=== PATIENT | female | born 1965 | race Caucasian/White ===

== ENCOUNTER 2021-06-16 15:54 | Outpatient (REF) | payer BC, SELFPAY ==
--- NOTE | ~2021-06-16 | XR_ITS ---
EXAMINATION: XR KNEE, LEFT CLINICAL INFORMATION: M25.562 - Pain in left knee COMPARISON: Pain TECHNIQUE: Four views of the left knee. FINDINGS: There is no fracture or dislocation. There is mild narrowing medial knee joint compartment with marginal osteophytes from medial femoral condyle. There is no erosive change or chondrocalcinosis. Spurring at the quadriceps insertion patella is present. There is likely small suprapatellar effusion. Hoffa's fat pad appears normal. XR/XR knee LT 4V IMPRESSION: 1. Mild degenerative changes medial knee joint compartment. Probable small effusion. 2. Spurring at quadriceps insertion patella.
== END 2021-06-16 15:55 | disposition home or self-care (01) ==
LOC: HO.HMGCX 15:54
PROVIDERS: PCP Internal Medicine; Visit Provider Physician Assistant Medical
DX: M25.562 Pain in left knee (principal)
CPT/HCPCS: 73564

== ENCOUNTER 2021-12-05 07:32 | Outpatient (REF) | payer BC, SELFPAY ==
--- NOTE | ~2021-12-05 | XR_ITS ---
EXAMINATION: XR KNEE, LEFT XR KNEE AP STANDING CLINICAL INFORMATION: Pain. COMPARISON: None TECHNIQUE: Lateral and axial views of the left knee were obtained. AP bilateral standing view of the knees was obtained. FINDINGS: Bony mineralization is normal. The right lateral and medial joint space compartments are well-maintained. There is slight peripheral osteophyte formation of the right medial joint space compartment. There is mild asymmetric narrowing of the left medial joint space compartment, with peripheral osteophyte formation. The lateral and patellofemoral joint space compartments are well-maintained. There is a large left knee joint effusion. No fracture or dislocation is seen. There is no significant varus or valgus configuration noted bilaterally. XR/XR knee LT 2V IMPRESSION: 1. There is minimal osteoarthritic change of the medial joint space compartment of the right knee. 2. There is mild osteoarthritic change of the medial joint space compartment of the left knee. 3. There is a large left knee joint effusion.
--- NOTE | ~2021-12-05 | XR_ITS ---
EXAMINATION: XR KNEE, LEFT XR KNEE AP STANDING CLINICAL INFORMATION: Pain. COMPARISON: None TECHNIQUE: Lateral and axial views of the left knee were obtained. AP bilateral standing view of the knees was obtained. FINDINGS: Bony mineralization is normal. The right lateral and medial joint space compartments are well-maintained. There is slight peripheral osteophyte formation of the right medial joint space compartment. There is mild asymmetric narrowing of the left medial joint space compartment, with peripheral osteophyte formation. The lateral and patellofemoral joint space compartments are well-maintained. There is a large left knee joint effusion. No fracture or dislocation is seen. There is no significant varus or valgus configuration noted bilaterally. XR/XR knee standing BI IMPRESSION: 1. There is minimal osteoarthritic change of the medial joint space compartment of the right knee. 2. There is mild osteoarthritic change of the medial joint space compartment of the left knee. 3. There is a large left knee joint effusion.
== END 2021-12-05 07:33 | disposition home or self-care (01) ==
LOC: HO.HOSX 07:32
PROVIDERS: Visit Provider Physician Assistant
DX: M25.562 Pain in left knee (principal)
CPT/HCPCS: 73560; 73565

== ENCOUNTER → 2022-05-30 08:06 | Outpatient (BNVA) | payer BC, SELFPAY | PROVIDERS: PCP Internal Medicine; Visit Provider Physician Assistant | DX: M22.2X2 Patellofemoral disorders, left knee (principal); E11.9 Type 2 diabetes mellitus without complications | CPT/HCPCS: 20610; J1020 ==

== ENCOUNTER 2022-11-01 10:42 | Outpatient (REF) | payer BC, SELFPAY ==
[2022-11-01 14:15] LABS: Basophils Percent Auto 0.4 % (0-2); Eosinophils Absolute Auto 0.1 X10*3/uL (0.0-0.4); Eosinophils Percent Auto 1.4 % (0-4); Hematocrit 42.6 % (37.0-47.0); Hemoglobin 14.6 g/dl (12.0-16.0); Imm Gran Abs Auto 0.03 X10*3/uL (0.00-0.03); Imm Gran Pct Auto 0.5 % (0.0-0.4); Lymphocytes Absolute Auto 3.6 X10*3/uL (1.2-4.9); Lymphocytes Percent Auto 64.5 % (20-40); MANUAL DIFF FLAG SCAN; Mean Corpuscular HGB Conc 34.3 g/dl (31.0-35.0); Mean Corpuscular Hemoglobin 30.4 pg (27.0-33.0); Mean Corpuscular Volume 88.8 fL (80.0-98.0); Mean Platelet Volume 9.9 fL (9.4-12.3); Monocytes Absolute Auto 0.5 X10*3/uL (0.1-1.2); Monocytes Percent Auto 9.6 % (2-11); Neutrophils Absolute Auto 1.3 x10*3/uL (2.0-8.3); Neutrophils Percent Auto 23.6 % (45-73); Platelet Count 283 X10*3/uL (160-400); Red Cell Distribution Width 12.2 % (11.0-16.0); SCAN SMEAR FLAG 1; White Blood Count 5.6 X10*3/uL (4.8-10.8)
[2022-11-01 14:28] LABS: Estimated Average Glucose 203 mg/dL; Hemoglobin A1c % 8.7 %
[2022-11-01 14:31] LABS: C Reactive Protein 0.31 mg/dL (< or = 0.50); Uric Acid 9.8 mg/dL (2.4-5.7)
[2022-11-01 14:35] LABS: Alanine Aminotransferase 35 U/L (0-31); Albumin Level 4.2 g/dL (3.5-5.0); Alkaline Phosphatase 78 U/L (39-117); Anion Gap 12 (12-20); Aspartate Amino Transferase 22 U/L (5-31); Bilirubin Total 0.7 mg/dL (0.0-1.0); Blood Urea Nitrogen 21 mg/dL (9-16); Calcium 9.4 mg/dL (8.4-10.2); Carbon Dioxide 28 mmol/L (22-29); Chloride 103 mmol/L (96-108); Cholesterol 238 mg/dL; Estimated Glomerular Filt Rate > 60; Glucose Fasting 189 mg/dL (60-99); HDL Cholesterol 36 mg/dL; LDL Cholesterol Calculated 174 mg/dl; Potassium 4.2 mmol/L (3.3-5.1); Sodium 139 mmol/L (135-145); Total Protein 6.8 g/dL (6.5-8.0); Triglycerides 144 mg/dL
[2022-11-01 14:43] LABS: SLIDE REVIEW VERIFIED
[2022-11-01 14:55] LABS: Erythrocyte Sedimentation Rate 6 MM/HR (0-20)
[2022-11-01 15:18] LABS: Creatinine Urine 108.31 mg/dL; Microalbum/Creatinine Ratio Ur 6.4 ug/mg cr
== END 2022-11-01 10:43 | disposition home or self-care (01) ==
LOC: HO.HMGCLDS 10:42
PROVIDERS: Absent Provider Physician Assistant; PCP Internal Medicine; Visit Provider Internal Medicine
DX: Z00.00 Encounter for general adult medical examination without abnormal findings (principal); E11.9 Type 2 diabetes mellitus without complications; M79.672 Pain in left foot
CPT/HCPCS: 36415; 80053; 80061; 82043; 83036; 84550; 85025; 85652; 86140

== ENCOUNTER 2023-01-25 11:17 | Outpatient (REF) | payer BC, SELFPAY ==
[2023-01-25 16:08] LABS: MANUAL DIFF FLAG NO
[2023-01-25 16:27] LABS: Basophils Percent Auto 0.4 % (0-2); Eosinophils Absolute Auto 0.1 X10*3/uL (0.0-0.4); Eosinophils Percent Auto 1.5 % (0-4); Hematocrit 43.3 % (37.0-47.0); Hemoglobin 14.4 g/dl (12.0-16.0); Imm Gran Abs Auto 0.05 X10*3/uL (0.00-0.03); Imm Gran Pct Auto 0.6 % (0.0-0.4); Lymphocytes Absolute Auto 4.4 X10*3/uL (1.2-4.9); Lymphocytes Percent Auto 53.4 % (20-40); Mean Corpuscular HGB Conc 33.3 g/dl (31.0-35.0); Mean Corpuscular Hemoglobin 29.8 pg (27.0-33.0); Mean Corpuscular Volume 89.6 fL (80.0-98.0); Mean Platelet Volume 9.7 fL (9.4-12.3); Monocytes Absolute Auto 0.9 X10*3/uL (0.1-1.2); Monocytes Percent Auto 10.9 % (2-11); Neutrophils Absolute Auto 2.8 x10*3/uL (2.0-8.3); Neutrophils Percent Auto 33.2 % (45-73); Platelet Count 325 X10*3/uL (160-400); Red Blood Count 4.83 X10*6/uL (4.20-5.50); Red Cell Distribution Width 12.4 % (11.0-16.0); White Blood Count 8.3 X10*3/uL (4.8-10.8)
[2023-01-25 16:33] LABS: Estimated Average Glucose 163 mg/dL; Hemoglobin A1c % 7.3 %
[2023-01-25 17:21] LABS: Alanine Aminotransferase 37 U/L (0-31); Albumin Level 4.4 g/dL (3.5-5.0); Alkaline Phosphatase 106 U/L (39-117); Anion Gap 13 (12-20); Aspartate Amino Transferase 26 U/L (5-31); Bilirubin Total 0.3 mg/dL (0.0-1.0); Blood Urea Nitrogen 25 mg/dL (9-16); Calcium 9.8 mg/dL (8.4-10.2); Carbon Dioxide 26 mmol/L (22-29); Chloride 105 mmol/L (96-108); Estimated Glomerular Filt Rate > 60; Glucose Random 145 mg/dL (60-115); Potassium 4.1 mmol/L (3.3-5.1); Sodium 140 mmol/L (135-145); Total Protein 7.5 g/dL (6.5-8.0); Uric Acid 8.8 mg/dL (2.4-5.7)
== END 2023-01-25 11:18 | disposition home or self-care (01) ==
LOC: HO.HMGCLDS 11:17
PROVIDERS: PCP Internal Medicine; Visit Provider Internal Medicine
DX: E11.9 Type 2 diabetes mellitus without complications (principal); E66.09 Other obesity due to excess calories; E79.0 Hyperuricemia without signs of inflammatory arthritis and tophaceous disease; E78.9 Disorder of lipoprotein metabolism, unspecified
CPT/HCPCS: 36415; 80053; 83036; 84550; 85025

== ENCOUNTER 2023-04-18 09:25 | Outpatient (AMB) | payer BC, SELFPAY ==
--- NOTE | 2023-04-18 09:26 | MHC.PC.OV ---
Vital Signs 04/18/23 09:27 Height 5 ft 3 in Weight 204 lb BMI 36.1 BP 138/80 Blood Pressure Location Rt brachial Position Sitting Pulse 91 Pulse Source Pulse Oximeter Pulse Oximetry (%) 97 Oxygen Delivery Method Room Air Intake Visit Reasons: 3m follow up Allergies penicillin V Allergy (Unknown, Verified 04/18/23 09:27) unknown Tobacco use date assessed: 04/18/23 Dental Screening Dental Screen Date: 04/18/23 Did you have a dental visit in the last 12 months?: Yes Did you have a dental problem in the last 6 months where you did not have access to dental care?: No Was dental information given to patient?: Patient has dentist HPI 3m follow up HPI Details Patient is a 57-year-old female who came back from [place] after visiting her mother who is demented Her mother did not recognize her, patient is going through emotional crisis, tells me that it is difficult for her to process all these changes. She is continuously weeping. She does agree to start therapy I have our behavior health coordinator meet with the patient She had labs done in January her hemoglobin A1c has gone up to 7.3, currently patient is on glipizide 5 mg She says that she is going to try to control her diet better. BMI is elevated 36.1 patient also need to lose weight. She will repeat labs again in June when she will return for physical exam [facility] Medical History Dog bite of left lower leg Nasal congestion with rhinorrhea Annual physical exam Depression Anxiety Type 2 diabetes mellitus Breast calcification, left Surgical History S/P KHANH-BSO H/O colonoscopy Family History Father Hypertension Diabetes Mother Diabetes Hypertension COPD (chronic obstructive pulmonary disease) Social History Housing: House Patient Tobacco Use Status: Never used Tobacco e-Cigarette/Vaping Use: Never Used Second Hand Smoke Exposure: Yes Current occupational status: employed Cognitive needs: No Hearing needs: No Vision needs: Yes Questionnaire PHQ-9 Over the last 2 weeks, how often have you been bothered by any of the following problems? 1. Little interest or pleasure in doing things: more than half the days 2. Feeling down, depressed, or hopeless: more than half the days 3. Trouble falling or staying asleep, or sleeping too much: more than half the days 4. Feeling tired or having little energy: several days 5. Poor appetite or overeating: several days 6. Feeling bad about yourself - or that you are a failure or have let yourself or your family down: not at all 7. Trouble concentrating on things, such as reading the newspaper or watching television: not at all 8. Moving or speaking so slowly that other people could have noticed. Or the opposite - being so fidgety or restless that you have been moving around a lot more than usual: not at all 9. Thoughts that you would be better off or of hurting yourself in some way: not at all Total score: 8 Depression Screening Interpretation: Negative Depression Screening Done: Yes 23827 - PHQ-9 Billing: Yes Source: Developed by Drs. aDniel Mata, Sam Feliciano and colleagues, with an educational hyun from [employer]. Thrive Questionnaire Date Thrive assessed: 09/19/22 AUDIT C Alcohol Use Questionnaire (AUDIT-C) 1. How often do you have a drink containing alcohol?: Never 3. How often do you have six or more drinks on one occasion?: Never Total Score: 0 Score Reviewed/Action Taken: Yes ROMMEL-7 AMB Questionnaire ROMMEL-7 Date ROMMEL - 7 assessed: 09/19/22 Source: Developed by Drs. Daniel Mata, Sam Feliciano and colleagues, with an educational hyun from [employer]. Review of Systems Const Denies chills and Denies fever(s) ENT Denies epistaxis and Denies nasal discharge Card Denies chest pain Resp Denies chest congestion, Denies cough and Denies hemoptysis GI Denies diarrhea and Denies nausea Skin/Breast Denies rash Neuro Reports no additional complaints Psych Reports no additional complaints Endo Reports no additional complaints Physical exam (Primary Care) Vital Signs: Last Vital Signs Pulse 91 04/18/23 09:27 BP 138/80 04/18/23 09:27 Pulse Ox 97 04/18/23 09:27 Oxygen Delivery Method Room Air 04/18/23 09:27 BMI result Body Mass Index 36.1 Tobacco/Smoking Status: Tobacco use Status Tobacco use date assessed 04/18/23 04/18/23 09:29 Patient Tobacco Use Status Never used Tobacco 04/18/23 09:29 e-Cigarette/Vaping Use Never Used 04/18/23 09:29 PHQ-9: PHQ-9 Score PHQ-9: Total score 8 04/18/23 10:13 Depression Screening Interpretation: Negative Thrive Assessment: Date of Thrive Assessment Date Thrive assessed 09/19/22 04/18/23 09:29 Const General: cooperative, comfortable and no acute distress Orientation/consciousness: patient oriented x3 HENMT Head: Yes normocephalic Eyes General: appearance normal, both eyes and all related structures Neck Neck: Yes supple Resp Effort & Inspection: normal respiratory effort, no cough and no stridor Cardio Rhythm: regular rhythm Heart sounds: S1 normal heart sound present and S2 normal heart sound present Skin General skin exam: turgor normal Neuro General: patient oriented x3, tone normal and moves all extremities Extrem Right lower extremity: no edema Left lower extremity: no edema Assessment and Plan Assessment & Plan (1) DM type 2 (diabetes mellitus, type 2): Code(s): E11.9 - Type 2 diabetes mellitus without complications Qualifiers: Diabetes mellitus complication status: without complication 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 Qualified Code(s): E11.9 - Type 2 diabetes mellitus without complications (2) Lipid disorder: Code(s): E78.9 - Disorder of lipoprotein metabolism, unspecified (3) Obesity due to excess calories: Code(s): E66.09 - Other obesity due to excess calories (4) Elevated uric acid in blood: Code(s): E79.0 - Hyperuricemia without signs of inflammatory arthritis and tophaceous disease (5) Emotional crisis: Code(s): F43.20 - Adjustment disorder, unspecified Plan Patient is a 57-year-old female who came back from [place] after visiting her mother who is demented Her mother did not recognize her, patient is going through emotional crisis, tells me that it is difficult for her to process all these changes. She is continuously weeping. She does agree to start therapy I have our behavior health coordinator meet with the patient She had labs done in January her hemoglobin A1c has gone up to 7.3, currently patient is on glipizide 5 mg She says that she is going to try to control her diet better. BMI is elevated 36.1 patient also need to lose weight. She also have elevated lipids but does not for headache medication Uric acid is also elevated. 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
[2023-04-18 09:27] VITALS: BP 138/80; PULSE 91; O2SAT 97; BMI 36.1
== END 2023-04-18 10:02 | disposition home or self-care (01) ==
PROVIDERS: PCP Internal Medicine; Visit Provider Internal Medicine
DX: E11.9 Type 2 diabetes mellitus without complications (principal); E78.9 Disorder of lipoprotein metabolism, unspecified; Z68.36 Body mass index [BMI] 36.0-36.9, adult; E66.09 Other obesity due to excess calories; E79.0 Hyperuricemia without signs of inflammatory arthritis and tophaceous disease; F43.20 Adjustment disorder, unspecified
CPT/HCPCS: 99214

== ENCOUNTER 2023-06-27 11:04 | Outpatient (AMB) | payer BC, SELFPAY ==
[2023-06-27 11:06] VITALS: BP 158/88; PULSE 69; O2SAT 98; BMI 36.4
--- NOTE | 2023-06-27 11:06 | MHC.PC.OV ---
Vital Signs 06/27/23 11:06 Height 5 ft 3 in Weight 205 lb 5 oz BMI 36.4 BP 158/88 H Blood Pressure Location Rt brachial Position Sitting Pulse 69 Pulse Source Pulse Oximeter Pulse Oximetry (%) 98 Oxygen Delivery Method Room Air Intake Visit Reasons: PE Allergies penicillin V Allergy (Unknown, Verified 06/27/23 11:06) unknown Medication List - Last Reconciled 06/27/23 by Tim Nieves MD blood sugar diagnostic (OneTouch Ultra Test strips) As directed blood-glucose meter (IBTgamesTouch Ultra2 Meter) Use to check fasting blood sugar daily glipizide 5 mg PO DAILY 90 days lancets (IBTgamesTouch Delica Lancets) Use to check fasting blood sugar daily Tobacco use date assessed: 06/27/23 Dental Screening Dental Screen Date: 06/27/23 Did you have a dental visit in the last 12 months?: Yes Did you have a dental problem in the last 6 months where you did not have access to dental care?: No Was dental information given to patient?: Patient has dentist HPI PE HPI Details Patient is a 57-year-old female for physical exam Patient had COVID 3 weeks still have lingering cough but she is recovering 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 I have sent Lexapro 5 mg tablet with the patient I have encouraged her to take 1 at least 4 a month or so. She starting therapy tomorrow. Patient have a history of uterine cancer she goes to a gyne Oncology once a year and just had a checkup done Colonoscopy was 5 years ago [facility], next 1 will be when she will turn 62 Mammogram was August of this year Patient have diabetes and is on glipizide 5 mg daily. Follow-up 3 months [facility] Medical History Dog bite of left lower leg Nasal congestion with rhinorrhea Annual physical exam Depression Anxiety Type 2 diabetes mellitus Breast calcification, left Surgical History S/P KHANH-BSO H/O colonoscopy Family History Father Hypertension Diabetes Mother Diabetes Hypertension COPD (chronic obstructive pulmonary disease) Social History Housing: House Patient Tobacco Use Status: Never used Tobacco e-Cigarette/Vaping Use: Never Used Second Hand Smoke Exposure: Yes Current occupational status: employed Cognitive needs: No Hearing needs: No Vision needs: Yes Questionnaire Thrive Questionnaire Date Thrive assessed: 09/19/22 ROMMEL-7 AMB Questionnaire ROMMEL-7 Date ROMMEL - 7 assessed: 09/19/22 Source: Developed by Drs. Daniel Mata, Namrata Mcguire, Sam Andres and colleagues, with an educational hyun from [employer]. Review of Systems Const Denies chills, Denies fever(s) and Denies headache(s) Eyes Denies blurry vision ENT Denies headache(s), Denies nasal discharge, Denies nasal obstruction, Denies odynophagia and Denies sinus pain Card Denies chest pain at rest and Denies chest pain with activity Resp Denies cough and Denies hemoptysis GI Denies odynophagia, Denies vomiting and Denies hematemesis Reports as per HPI Musc Denies abnormal gait Skin/Breast Reports as per HPI Neuro Denies Neuro-related abnormal movements, Denies Abnormal speech present, Denies abnormal gait, Denies headache(s) and Denies Sensory deficit (Neuro) Psych Denies mood swings and Denies paranoia Endo Reports as per HPI Javier/Lymph Reports as per HPI Aller/Immun Reports as per HPI Physical exam (Primary Care) Vital Signs: Last Vital Signs Pulse 69 06/27/23 11:06 BP 158/88 H 06/27/23 11:06 Pulse Ox 98 06/27/23 11:06 Oxygen Delivery Method Room Air 06/27/23 11:06 BMI result Body Mass Index 36.4 Tobacco/Smoking Status: Tobacco use Status Tobacco use date assessed 06/27/23 06/27/23 11:08 Patient Tobacco Use Status Never used Tobacco 06/27/23 11:08 e-Cigarette/Vaping Use Never Used 06/27/23 11:08 Thrive Assessment: Date of Thrive Assessment Date Thrive assessed 09/19/22 06/27/23 11:08 Const General: cooperative, comfortable and no acute distress Orientation/consciousness: patient oriented x3 HENMT Head: Yes normocephalic and Yes atraumatic Eyes General: appearance normal, both eyes and all related structures Pupils: Equal, round and reactive pupils present EOM: EOMs intact bilaterally Neck Neck: Yes supple and No lymphadenopathy Thyroid: Thyroid normal Lymphatic: no lymphadenopathy noted Chest Breast/axilla palpation: normal palpation of the breasts Resp Effort & Inspection: normal respiratory effort and able to speak in complete sentences Auscultation: clear to auscultation bilaterally Cardio Heart sounds: S1 normal heart sound present and S2 normal heart sound present GI Palpation (GI): Soft to palpation and nontender Auscultation: normal bowel sounds General: Yes no CVA tenderness Back/Spine/Pelvis Back: no CVA tenderness Skin General skin exam: elasticity normal and turgor normal Neuro General: patient oriented x3 and gait normal Cranial nerves: Yes Equal, round and reactive pupils present Speech: No Abnormal speech present Sensory Exam: No Sensory deficit (Neuro) Coordination: tandem gait normal and Romberg test negative Extrem General: Yes normal exam except as noted and No edema Assessment and Plan Assessment & Plan (1) Encounter for general adult medical examination with abnormal findings: Code(s): Z00.01 - Encounter for general adult medical examination with abnormal findings (2) Emotional crisis: Code(s): F43.20 - Adjustment disorder, unspecified (3) Anxiety, generalized: Code(s): F41.1 - Generalized anxiety disorder (4) Lipid disorder: Code(s): E78.9 - Disorder of lipoprotein metabolism, unspecified (5) Irritable bowel syndrome with diarrhea: Code(s): K58.0 - Irritable bowel syndrome with diarrhea (6) Obesity due to excess calories: Code(s): E66.09 - Other obesity due to excess calories (7) DM type 2 (diabetes mellitus, type 2): Code(s): E11.9 - Type 2 diabetes mellitus without complications Qualifiers: Diabetes mellitus complication status: without complication 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 I have sent Lexapro 5 mg tablet with the patient I have encouraged her to take 1 at least 4 a month or so. She starting therapy tomorrow. Patient have a history of uterine cancer she goes to a gyne Oncology once a year and just had a checkup done Colonoscopy was 5 years ago [facility], next 1 will be when she will turn 62 Mammogram was August of this year Patient have diabetes and is on glipizide 5 mg daily. Follow-up 3 months Orders: Orders Comprehensive Met. Panel Today E11.9 - Type 2 diabetes mellitus without complications, E66.09 - Other obesity due to excess calories, E78.9 - Disorder of lipoprotein metabolism, unspecified, F41.1 - Generalized anxiety disorder, F43.20 - Adjustment disorder, unspecified, K58.0 - Irritable bowel syndrome with diarrhea, Z00.01 - Encounter for general adult medical examination with abnormal findings Hemoglobin A1c Today E11.9 - Type 2 diabetes mellitus without complications, E66.09 - Other obesity due to excess calories, E78.9 - Disorder of lipoprotein metabolism, unspecified, F41.1 - Generalized anxiety disorder, F43.20 - Adjustment disorder, unspecified, K58.0 - Irritable bowel syndrome with diarrhea, Z00.01 - Encounter for general adult medical examination with abnormal findings Complete Blood Count Auto Diff Today E11.9 - Type 2 diabetes mellitus without complications, E66.09 - Other obesity due to excess calories, E78.9 - Disorder of lipoprotein metabolism, unspecified, F41.1 - Generalized anxiety disorder, F43.20 - Adjustment disorder, unspecified, K58.0 - Irritable bowel syndrome with diarrhea, Z00.01 - Encounter for general adult medical examination with abnormal findings LDL Cholesterol Direct Today E11.9 - Type 2 diabetes mellitus without complications, E66.09 - Other obesity due to excess calories, E78.9 - Disorder of lipoprotein metabolism, unspecified, F41.1 - Generalized anxiety disorder, F43.20 - Adjustment disorder, unspecified, K58.0 - Irritable bowel syndrome with diarrhea, Z00.01 - Encounter for general adult medical examination with abnormal findings Microalbumin, Random (w Creat) Today E11.9 - Type 2 diabetes mellitus without complications, E66.09 - Other obesity due to excess calories, E78.9 - Disorder of lipoprotein metabolism, unspecified, F41.1 - Generalized anxiety disorder, F43.20 - Adjustment disorder, unspecified, K58.0 - Irritable bowel syndrome with diarrhea, Z00.01 - Encounter for general adult medical examination with abnormal findings Medications: New escitalopram oxalate (Lexapro) 5 mg PO DAILY 30 tabs 0RF Coding Level of Care Code Est Pt Prev Care 40-64y(48930) Diagnoses Encounter for general adult medical examination with abnormal findings Z00.01 Emotional crisis F43.20 Anxiety, generalized F41.1 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 Irritable bowel syndrome with diarrhea K58.0 Obesity due to excess calories E66.09 Type 2 diabetes mellitus without complication, without long-term current use of insulin E11.9 Diabetes mellitus complication status: without complication Diabetes mellitus detention insulin use: without detention use
== END 2023-06-27 13:45 | disposition home or self-care (01) ==
PROVIDERS: PCP Internal Medicine; Visit Provider Internal Medicine
DX: Z00.00 Encounter for general adult medical examination without abnormal findings (principal); E11.9 Type 2 diabetes mellitus without complications; F43.20 Adjustment disorder, unspecified; F41.1 Generalized anxiety disorder; E78.9 Disorder of lipoprotein metabolism, unspecified; K58.0 Irritable bowel syndrome with diarrhea; E66.09 Other obesity due to excess calories
CPT/HCPCS: 99396

== ENCOUNTER 2023-09-26 09:15 | Outpatient (AMB) | payer BC, SELFPAY ==
[2023-09-26 09:18] VITALS: BP 184/72; PULSE 89; O2SAT 97; BMI 38.1
--- NOTE | 2023-09-26 09:18 | A.OFFPC_ITS ---
Vital Signs 09/26/23 09:18 09/26/23 09:48 Height 5 ft 3 in Weight 215 lb 4 oz BMI 38.1 BP 184/72 H 158/80 H Blood Pressure Location Lt brachial Rt brachial Position Sitting Sitting Pulse 89 Pulse Source Pulse Oximeter Pulse Oximetry (%) 97 Oxygen Delivery Method Room Air Intake Visit Reasons: 9m follow up Allergies penicillin V Allergy (Unknown, Verified 09/26/23 09:21) unknown Medication List - Last Reconciled 09/26/23 by Tim Nieves MD blood sugar diagnostic ([employer] Ultra Test strips) As directed blood-glucose meter ([employer] Ultra2 Meter) Use to check fasting blood sugar daily glipizide 5 mg PO DAILY 90 days lancets ([employer] Delica Lancets) Use to check fasting blood sugar daily Tobacco use date assessed: 09/26/23 Dental Screening Dental Screen Date: 09/26/23 Did you have a dental visit in the last 12 months?: Yes Did you have a dental problem in the last 6 months where you did not have access to dental care?: No Was dental information given to patient?: Patient has dentist HPI 9m follow up HPI Details Patient is a 57-year-old obese diabetic patient with anxiety Patient is in emotional crisis today and continue to cry Her mother who was demented and 90 years old And her sister is not helping, accusing her for certain things Patient is so depressed that she is forgetting to take her medication at times Arnulfo hemoglobin A1c is 8.5% today Her gout has flared up as well for that she is taking ibuprofen which is helping When she came in her blood pressure was 184/72, after talking to her for 15 minutes we rechecked it and it came back at 158/80 She has a therapist patient says that she will call and book the session She also have a script for Lexapro 5 mg that was provided to her last year but she never took We talked about starting the medications since patient is so depressed, she agreed to start the medication She will return on 04 of October for follow-up, she was supposed to have labs done before this visit but she forgot [facility] Medical History Dog bite of left lower leg Nasal congestion with rhinorrhea Annual physical exam Depression Anxiety Type 2 diabetes mellitus Breast calcification, left Surgical History S/P KHANH-BSO H/O colonoscopy Family History Father Hypertension Diabetes Mother Diabetes Hypertension COPD (chronic obstructive pulmonary disease) Social History Housing: House Patient Tobacco Use Status: Never used Tobacco e-Cigarette/Vaping Use: Never Used Second Hand Smoke Exposure: Yes Current occupational status: employed Cognitive needs: No Hearing needs: No Vision needs: Yes Questionnaire PHQ-9 Over the last 2 weeks, how often have you been bothered by any of the following problems? 1. Little interest or pleasure in doing things: more than half the days 2. Feeling down, depressed, or hopeless: more than half the days 3. Trouble falling or staying asleep, or sleeping too much: more than half the days 4. Feeling tired or having little energy: more than half the days 5. Poor appetite or overeating: more than half the days 6. Feeling bad about yourself - or that you are a failure or have let yourself or your family down: several days 7. Trouble concentrating on things, such as reading the newspaper or watching television: several days 8. Moving or speaking so slowly that other people could have noticed. Or the opposite - being so fidgety or restless that you have been moving around a lot more than usual: more than half the days 9. Thoughts that you would be better off or of hurting yourself in some way: not at all Total score: 14 Depression Screening Interpretation: Positive Depression Screening Done: Yes 75042 - PHQ-9 Billing: Yes Source: Developed by Drs. Daniel Mata, Namrata Mcguire, Sam Andres and colleagues, with an educational hyun from [employer]. Thrive Questionnaire Date Thrive assessed: 09/26/23 I am a: Patient What is your living situation today?: I have a steady place to live Within the past 12 months, did the food you bought not last and you didn't have the money to get more?: Never true Within the past 12 months, did you worry whether your food would run out before you got money to buy more?: Never true Do you have trouble paying for medicines?: No Do you have trouble getting transportation to medical appointments?: No Do you have trouble paying your heating and electricity bill?: No Do you have trouble taking care of your child, family member or friend?: No Do you have trouble with day-to-day activities such as bathing, preparing meals, shopping, managing finances, etc.?: No Are you currently unemployed and looking for a job?: No Are you interested in more education?: No Please select the resources that you would like help with: None Currently or been in a relationship where the following occur: no concerns reported THRIVE Score: 0 AUDIT C Alcohol Use Questionnaire (AUDIT-C) 1. How often do you have a drink containing alcohol?: Never 3. How often do you have six or more drinks on one occasion?: Never Total Score: 0 Score Reviewed/Action Taken: Yes ROMMEL-7 AMB Questionnaire ROMMEL-7 Date ROMMEL - 7 assessed: 09/26/23 Feeling nervous, anxious, or on edge: 2 = More than half the days Not being able to stop or control worryin = More than half the days Worrying too much about different things: 2 = More than half the days Trouble relaxin = More than half the days Being so restless that it is hard to sit still: 0 = Not at all Becoming easily annoyed or irritable: 2 = More than half the days Feeling afraid as if something awful might happen: 1 = Several days Total ROMMEL-7 score (0-4 normal; 5-9 mild; 10-14 moderate; 15-21 severe): 11 Source: Developed by Drs. Daniel Mata, Namrata Mcguire, Sam Andres and colleagues, with an educational hyun from [employer]. ROMMEL-7 Assessment Billing ROMMEL-7 Assessment Tool: ROMMEL-7 Assessment 22516 Review of Systems Const Denies chills and Denies fever(s) ENT Denies epistaxis and Denies nasal discharge Card Denies chest pain Resp Denies chest congestion, Denies cough and Denies hemoptysis GI Denies diarrhea and Denies nausea Skin/Breast Denies rash Neuro Reports no additional complaints Psych Reports no additional complaints Endo Reports no additional complaints Physical exam (Primary Care) Vital Signs: Last Vital Signs Pulse 89 09/26/23 09:18 BP 158/80 H 09/26/23 09:48 Pulse Ox 97 09/26/23 09:18 Oxygen Delivery Method Room Air 09/26/23 09:18 BMI result Body Mass Index 38.1 Tobacco/Smoking Status: Tobacco use Status Tobacco use date assessed 09/26/23 09/26/23 09:22 Patient Tobacco Use Status Never used Tobacco 09/26/23 09:22 e-Cigarette/Vaping Use Never Used 09/26/23 09:22 PHQ-9: PHQ-9 Score PHQ-9: Total score 14 09/26/23 10:08 Depression Screening Interpretation: Positive Thrive Assessment: Date of Thrive Assessment Date Thrive assessed 09/26/23 09/26/23 09:49 Currently or been in a relationship where the following occur: no concerns reported Const General: cooperative and comfortable Orientation/consciousness: patient oriented x3 HENMT Head: Yes normocephalic Eyes General: appearance normal, both eyes and all related structures Neck Neck: Yes supple Resp Effort & Inspection: normal respiratory effort, no cough and no stridor Cardio Rhythm: regular rhythm Heart sounds: S1 normal heart sound present and S2 normal heart sound present Skin General skin exam: turgor normal Neuro General: patient oriented x3, tone normal and moves all extremities Extrem Right lower extremity: no edema Left lower extremity: no edema Results AMB Hemoglobin A1c AMB Hemoglobin A1c 8.5 % Last Edit by Donovan Marie MA on 09/26/23 09:35 Results Reviewed Results Reviewed: Laboratory Last Values Hgb A1c (Clinic) 8.5 % (4.0-6.0) H 09/26/23 09:35 Assessment and Plan Assessment & Plan (1) Emotional crisis, adjustment reaction: Code(s): F43.20 - Adjustment disorder, unspecified Qualifiers: Adjustment disorder type: with mixed anxiety and depressed mood Qualified Code(s): F43.23 - Adjustment disorder with mixed anxiety and depressed mood (2) Obesity due to excess calories: Code(s): E66.09 - Other obesity due to excess calories Qualifiers: Body mass index: BMI 38.0-38.9 Obesity classification: adult class 2 (BMI 35 - 39.9) Serious obesity comorbidity presence: with serious comorbidity Qualified Code(s): E66.01 - Morbid (severe) obesity due to excess calories; Z68.38 - Body mass index [BMI] 38.0-38.9, adult (3) Gout: Code(s): M10.9 - Gout, unspecified Qualifiers: Chronicity: acute Gout etiology: idiopathic Gout site: ankle Laterality: left Qualified Code(s): M10.072 - Idiopathic gout, left ankle and foot (4) DM type 2 (diabetes mellitus, type 2): Code(s): E11.9 - Type 2 diabetes mellitus without complications Qualifiers: Diabetes mellitus complication status: without complication 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 insulin use: without jail use Qualified Code(s): E11.9 - Type 2 diabetes mellitus without complications (5) Major depression, recurrent: Code(s): F33.9 - Major depressive disorder, recurrent, unspecified Qualifiers: Active/Remission status: currently active Major depression episode severity: moderate Qualified Code(s): F33.1 - Major depressive disorder, recurrent, moderate Plan Patient is a 57-year-old obese diabetic patient with anxiety Patient is in emotional crisis today and continue to cry Her mother who was demented and 90 years old And her sister is not helping, accusing her for certain things Patient is so depressed that she is forgetting to take her medication at times Arnlufo hemoglobin A1c is 8.5% today Her gout has flared up as well for that she is taking ibuprofen which is helping When she came in her blood pressure was 184/72, after talking to her for 15 minutes we rechecked it and it came back at 158/80 She has a therapist patient says that she will call and book the session She also have a script for Lexapro 5 mg that was provided to her last year but she never took We talked about starting the medications since patient is so depressed, she agreed to start the medication She will return on 04 of October for follow-up, she was supposed to have labs done before this visit but she forgot Coding Level of Care Code Est Pt Level 4 (18219) Diagnoses Adjustment disorder with mixed anxiety and depressed mood F43.23 Adjustment disorder type: with mixed anxiety and depressed mood Class 2 severe obesity due to excess calories with serious comorbidity and body mass index (BMI) of 38.0 to 38.9 in adult E66.01; Z68.38 Body mass index: BMI 38.0-38.9 Obesity classification: adult class 2 (BMI 35 - 39.9) Serious obesity comorbidity presence: with serious comorbidity Acute idiopathic gout of left ankle M10.072 Chronicity: acute Gout etiology: idiopathic Gout site: ankle Laterality: left Type 2 diabetes mellitus without complication, without long-term current use of insulin E11.9 Diabetes mellitus complication status: without complication Diabetes mellitus jail insulin use: without jail use Moderate episode of recurrent major depressive disorder F33.1 Active/Remission status: currently active Major depression episode severity: moderate Additional Codes ROMMEL-7 Assessment Billing - ROMMEL-7 Assessment Tool: ROMMEL-7 Assessment 51504 ([id number])
[2023-09-26 09:48] VITALS: BP 158/80
== END 2023-09-26 10:34 | disposition home or self-care (01) ==
PROVIDERS: PCP Internal Medicine; Visit Provider Internal Medicine
DX: E11.9 Type 2 diabetes mellitus without complications (principal); E66.01 Morbid (severe) obesity due to excess calories; F33.1 Major depressive disorder, recurrent, moderate; Z68.38 Body mass index [BMI] 38.0-38.9, adult; F43.23 Adjustment disorder with mixed anxiety and depressed mood; M10.072 Idiopathic gout, left ankle and foot
CPT/HCPCS: 83036; 96127; 99214

== ENCOUNTER 2023-09-28 09:29 | Outpatient (AMB) | payer BC, SELFPAY ==
[2023-09-28 09:34] VITALS: BP 150/80; PULSE 102; TEMP 36.7; O2SAT 96; BMI 38.1
--- NOTE | 2023-09-28 09:34 | AM.OFFWIN_ITS ---
Intake Vital Signs 09/28/23 09:34 Height 5 ft 3 in Weight 215 lb BMI 38.1 BP 150/80 H Blood Pressure Location Lt brachial Position Sitting Pulse 102 H Pulse Source Pulse Oximeter Temp 98.0 F Temp Source Temporal Artery Scan Pulse Oximetry (%) 96 Oxygen Delivery Method Room Air Intake Visit Reasons: EP Gout Intake Note: pt is here today for gout started sunday Patient Tobacco Use Status: Never used Tobacco Allergies penicillin V Allergy (Unknown, Verified 09/28/23 09:43) unknown Do you need a note to return to daycare/school/sports/work: Yes HPI HPI Comments History of Present Illness Details 57-year-old female presents today compla ining of left ankle pain for the last few days. She states she has a past medical history of gout and need lb and a half for shrimp that seem to be the onset of this exacerbation. She denies any particular injury or trauma to the area. She states her last episode was 1 year ago [facility] Medical History Dog bite of left lower leg Nasal congestion with rhinorrhea Annual physical exam Depression Anxiety Type 2 diabetes mellitus Breast calcification, left Surgical History S/P KHANH-BSO H/O colonoscopy Family History Father Hypertension Diabetes Mother Diabetes Hypertension COPD (chronic obstructive pulmonary disease) Social History Housing: House Patient Tobacco Use Status: Never used Tobacco e-Cigarette/Vaping Use: Never Used Second Hand Smoke Exposure: Yes Current occupational status: employed Cognitive needs: No Hearing needs: No Vision needs: Yes Review of Systems Const All systems reviewed & are unremarkable except as noted in HPI and below Physical Exam Vital Signs: Last Vital Signs Temp 98.0 F 09/28/23 09:34 Pulse 102 H 09/28/23 09:34 BP 150/80 H 09/28/23 09:34 Pulse Ox 96 09/28/23 09:34 Oxygen Delivery Method Room Air 09/28/23 09:34 BMI result Body Mass Index 38.1 Const General: acute distress moderate Extrem Left lower extremity: edema (Erythema noted in her left ankle with severe te nderness to palpation) Assessment & Plan Assessment & Plan (1) Gout: Code(s): M10.9 - Gout, unspecified Plan: The patient will take 10 days of Indocin and stay home from work for the next few days. To follow up with her PCP Plan See plan Medications: New indomethacin ER 75 mg PO DAILY 10 caps 0RF Coding Level of Care Code Est Pt Level 3 (87729) Diagnoses Gout M10.9
== END 2023-09-28 16:10 | disposition home or self-care (01) ==
PROVIDERS: PCP Internal Medicine; Visit Provider Physician Assistant Medical
DX: M10.9 Gout, unspecified (principal)
CPT/HCPCS: 99213

== ENCOUNTER 2023-10-05 07:37 | Outpatient (AMB) | payer BC, SELFPAY ==
[2023-10-05 07:39] VITALS: BP 136/80; PULSE 78; O2SAT 98; BMI 37.6
--- NOTE | 2023-10-05 07:39 | A.OFFPC_ITS ---
Vital Signs 10/05/23 07:39 Height 5 ft 3 in Weight 212 lb BMI 37.6 BP 136/80 Blood Pressure Location Rt brachial Position Sitting Pulse 78 Pulse Source Pulse Oximeter Pulse Oximetry (%) 98 Oxygen Delivery Method Room Air Intake Visit Reasons: F/u~ Allergies penicillin V Allergy (Unknown, Verified 10/05/23 07:42) unknown Medication List - Last Reconciled 10/05/23 by Tim Nieves MD blood sugar diagnostic ([employer] Ultra Test strips) As directed blood-glucose meter ([employer] Ultra2 Meter) Use to check fasting blood sugar daily glipizide 5 mg PO DAILY 90 days indomethacin ER 75 mg PO DAILY lancets ([employer] Delica Lancets) Use to check fasting blood sugar daily Tobacco use date assessed: 10/05/23 Dental Screening Dental Screen Date: 09/26/23 Did you have a dental visit in the last 12 months?: Yes Did you have a dental problem in the last 6 months where you did not have access to dental care?: No Was dental information given to patient?: Patient has dentist HPI F/u~ HPI Details Patient was seen in our walk-in clinic for flare-up of gout was prescribed indomethacin Last time she saw me she was having emotional crisis due to passing of her mother I encouraged patient to start Lexapro 5 mg She was also reminded about labs which are overdue Today she came in for follow-up appointment Labs are still not done I ordered uric acid level as well Her gout pain is better she is still taking indomethacin She says that she ate 2 lb of trimmed before she started having the gout pain However she is concerned about Lyme as well Lyme test added as well Patient have history of prolactinoma she was seeing stummel selector Dr. Moreno However unable to get in touch with him for follow-up Last time she had MRI was 12 years ago at that time no prolactinoma was seen I have added prolactin level for the patient as at 1 point she was on bromocriptine She has not started Lexapro 5 mg, continued to be stressed and worried She said that she will start if she feels she can not manage on her own. [facility] Medical History Dog bite of left lower leg Nasal congestion with rhinorrhea Annual physical exam Depression Anxiety Type 2 diabetes mellitus Breast calcification, left Surgical History S/P KHANH-BSO H/O colonoscopy Family History Father Hypertension Diabetes Mother Diabetes Hypertension COPD (chronic obstructive pulmonary disease) Maternal Grandfather Substance use disorder Social History Housing: House Patient Tobacco Use Status: Never used Tobacco e-Cigarette/Vaping Use: Never Used Second Hand Smoke Exposure: Yes Current occupational status: employed Cognitive needs: No Hearing needs: No Vision needs: Yes Questionnaire Thrive Questionnaire Date Thrive assessed: 09/26/23 AUDIT C Alcohol Use Questionnaire (AUDIT-C) 1. How often do you have a drink containing alcohol?: Never Total Score: 0 ROMMEL-7 AMB Questionnaire ROMMEL-7 Date ROMMEL - 7 assessed: 09/26/23 Source: Developed by Drs. Daniel Mata, Namrata Mcguire, Sam Andres and colleagues, with an educational hyun from [employer]. Review of Systems Const Denies chills and Denies fever(s) ENT Denies epistaxis and Denies nasal discharge Card Denies chest pain Resp Denies chest congestion, Denies cough and Denies hemoptysis GI Denies diarrhea and Denies nausea Skin/Breast Denies rash Neuro Reports no additional complaints Psych Reports no additional complaints Endo Reports no additional complaints Physical exam (Primary Care) Vital Signs: Last Vital Signs Pulse 78 10/05/23 07:39 BP 136/80 10/05/23 07:39 Pulse Ox 98 10/05/23 07:39 Oxygen Delivery Method Room Air 10/05/23 07:39 BMI result Body Mass Index 37.6 Tobacco/Smoking Status: Tobacco use Status Tobacco use date assessed 10/05/23 10/05/23 07:45 Patient Tobacco Use Status Never used Tobacco 10/05/23 07:40 e-Cigarette/Vaping Use Never Used 10/05/23 07:40 Thrive Assessment: Date of Thrive Assessment Date Thrive assessed 09/26/23 10/05/23 07:40 Const General: cooperative, comfortable and no acute distress Orientation/consciousness: patient oriented x3 HENMT Head: Yes normocephalic Eyes General: appearance normal, both eyes and all related structures Neck Neck: Yes supple Resp Effort & Inspection: normal respiratory effort, no cough and no stridor Cardio Rhythm: regular rhythm Heart sounds: S1 normal heart sound present and S2 normal heart sound present Skin General skin exam: turgor normal Neuro General: patient oriented x3, tone normal and moves all extremities Extrem Right lower extremity: no edema Left lower extremity: no edema Assessment and Plan Assessment & Plan (1) 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 (2) Arthrosis: Code(s): M19.90 - Unspecified osteoarthritis, unspecified site (3) Gout: Code(s): M10.9 - Gout, unspecified Qualifiers: Gout site: foot Gout etiology: idiopathic Chronicity: acute Laterality: left Qualified Code(s): M10.072 - Idiopathic gout, left ankle and foot (4) Obesity due to excess calories: Code(s): E66.09 - Other obesity due to excess calories Qualifiers: Obesity classification: adult class 2 (BMI 35 - 39.9) Serious obesity comorbidity presence: with serious comorbidity Body mass index: BMI 38.0-38.9 Qualified Code(s): E66.01 - Morbid (severe) obesity due to excess calories; Z68.38 - Body mass index [BMI] 38.0-38.9, adult (5) DM type 2 (diabetes mellitus, type 2): Code(s): E11.9 - Type 2 diabetes mellitus without complications Qualifiers: 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 insulin 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: without retirement use Diabetes mellitus complication status: without complication Qualified Code(s): E11.9 - Type 2 diabetes mellitus without complications (6) Major depression, recurrent: Code(s): F33.9 - Major depressive disorder, recurrent, unspecified Qualifiers: Active/Remission status: currently active Major depression episode severity: moderate Qualified Code(s): F33.1 - Major depressive disorder, recurrent, moderate (7) Generalized anxiety disorder with panic attacks: Code(s): F41.1 - Generalized anxiety disorder; F41.0 - Panic disorder [episodic paroxysmal anxiety] Plan Patient was seen in our walk-in clinic for flare-up of gout was prescribed indomethacin Last time she saw me she was having emotional crisis due to passing of her mother I encouraged patient to start Lexapro 5 mg She was also reminded about labs which are overdue Today she came in for follow-up appointment Labs are still not done I ordered uric acid level as well Her gout pain is better she is still taking indomethacin She says that she ate 2 lb of trimmed before she started having the gout pain However she is concerned about Lyme as well Lyme test added as well Patient have history of prolactinoma she was seeing stummel selector Dr. Moreno However unable to get in touch with him for follow-up Last time she had MRI was 12 years ago at that time no prolactinoma was seen I have added prolactin level for the patient as at 1 point she was on bromocriptine She has not started Lexapro 5 mg, continued to be stressed and worried She said that she will start if she feels she can not manage on her own. Orders: Orders Prolactin Today D35.2 - Benign neoplasm of pituitary gland, M10.9 - Gout, unspecified, M19.90 - Unspecified osteoarthritis, unspecified site Lyme IgG/IgM w/reflex to WB Today D35.2 - Benign neoplasm of pituitary gland, M10.9 - Gout, unspecified, M19.90 - Unspecified osteoarthritis, unspecified site Uric Acid Today D35.2 - Benign neoplasm of pituitary gland, M10.9 - Gout, unspecified, M19.90 - Unspecified osteoarthritis, unspecified site Coding Level of Care Code Est Pt Level 4 (88536) Diagnoses Prolactinoma D35.2 Arthrosis M19.90 Acute idiopathic gout of left foot M10.072 Gout site: foot Gout etiology: idiopathic Chronicity: acute Laterality: left Class 2 severe obesity due to excess calories with serious comorbidity and body mass index (BMI) of 38.0 to 38.9 in adult E66.01; Z68.38 Obesity classification: adult class 2 (BMI 35 - 39.9) Serious obesity comorbidity presence: with serious comorbidity Body mass index: BMI 38.0-38.9 Type 2 diabetes mellitus without complication, without long-term current use of insulin E11.9 Diabetes mellitus retirement insulin use: without ferry terminal supervisor use Diabetes mellitus complication status: without complication Moderate episode of recurrent major depressive disorder F33.1 Active/Remission status: currently active Major depression episode severity: moderate Generalized anxiety disorder with panic attacks F41.1; F41.0
== END 2023-10-05 09:54 | disposition home or self-care (01) ==
PROVIDERS: PCP Internal Medicine; Visit Provider Internal Medicine
DX: E11.9 Type 2 diabetes mellitus without complications (principal); E66.01 Morbid (severe) obesity due to excess calories; F33.1 Major depressive disorder, recurrent, moderate; Z68.38 Body mass index [BMI] 38.0-38.9, adult; D35.2 Benign neoplasm of pituitary gland; M19.90 Unspecified osteoarthritis, unspecified site; M10.072 Idiopathic gout, left ankle and foot; F41.1 Generalized anxiety disorder; F41.0 Panic disorder [episodic paroxysmal anxiety]
CPT/HCPCS: 99214

== ENCOUNTER 2023-10-05 07:57 | Outpatient (REF) | payer BC, SELFPAY ==
[2023-10-05 10:31] LABS: MANUAL DIFF FLAG NO
[2023-10-05 10:49] LABS: Basophils Percent Auto 0.5 % (0-2); Eosinophils Absolute Auto 0.1 X10*3/uL (0.0-0.4); Eosinophils Percent Auto 1.7 % (0-4); Hematocrit 42.4 % (37.0-47.0); Hemoglobin 14.3 g/dl (12.0-16.0); Imm Gran Abs Auto 0.05 X10*3/uL (0.00-0.03); Imm Gran Pct Auto 0.8 % (0.0-0.4); Lymphocytes Absolute Auto 3.2 X10*3/uL (1.2-4.9); Lymphocytes Percent Auto 49.3 % (20-40); Mean Corpuscular HGB Conc 33.7 g/dl (31.0-35.0); Mean Corpuscular Hemoglobin 30.2 pg (27.0-33.0); Mean Corpuscular Volume 89.6 fL (80.0-98.0); Mean Platelet Volume 9.7 fL (9.4-12.3); Monocytes Absolute Auto 0.7 X10*3/uL (0.1-1.2); Monocytes Percent Auto 10.4 % (2-11); Neutrophils Absolute Auto 2.4 x10*3/uL (2.0-8.3); Neutrophils Percent Auto 37.3 % (45-73); Platelet Count 330 X10*3/uL (160-400); Red Blood Count 4.73 X10*6/uL (4.20-5.50); Red Cell Distribution Width 11.9 % (11.0-16.0); White Blood Count 6.5 X10*3/uL (4.8-10.8)
[2023-10-05 11:36] LABS: Creatinine Urine 86.02 mg/dL; Microalbum/Creatinine Ratio Ur 9.3 ug/mg cr (<30)
[2023-10-05 14:54] LABS: Alanine Aminotransferase 54 U/L (0-31); Albumin Level 4.2 g/dL (3.5-5.0); Alkaline Phosphatase 99 U/L (39-117); Anion Gap 15 (12-20); Aspartate Amino Transferase 33 U/L (5-31); Bilirubin Total 0.4 mg/dL (0.0-1.0); Blood Urea Nitrogen 20 mg/dL (9-16); Calcium 9.8 mg/dL (8.4-10.2); Carbon Dioxide 24 mmol/L (22-29); Chloride 104 mmol/L (96-108); Estimated Glomerular Filt Rate > 60; Glucose Random 242 mg/dL (60-115); Potassium 4.1 mmol/L (3.3-5.1); Sodium 139 mmol/L (135-145); Total Protein 7.3 g/dL (6.5-8.0); Uric Acid 9.1 mg/dL (2.4-5.7)
[2023-10-06 09:04] LABS: Prolactin 15.6 ng/mL
[2023-10-06 17:03] LABS: LDL Cholesterol Direct 144 mg/dL (<100)
[2023-10-09 04:34] LABS: Lyme Abs Screen <0.90 index
== END 2023-10-05 07:58 | disposition home or self-care (01) ==
LOC: HO.HMGCLDS 07:57
PROVIDERS: PCP Internal Medicine; Visit Provider Internal Medicine
DX: Z00.01 Encounter for general adult medical examination with abnormal findings (principal); F43.20 Adjustment disorder, unspecified; F41.1 Generalized anxiety disorder; E78.9 Disorder of lipoprotein metabolism, unspecified; K58.0 Irritable bowel syndrome with diarrhea; E11.9 Type 2 diabetes mellitus without complications; D35.2 Benign neoplasm of pituitary gland; M19.90 Unspecified osteoarthritis, unspecified site; M10.9 Gout, unspecified; E66.09 Other obesity due to excess calories
CPT/HCPCS: 36415; 80053; 82043; 82570; 83721; 84146; 84550; 85025; 86617; 86618

== ENCOUNTER 2024-01-25 08:15 | Outpatient (AMB) | payer BC, SELFPAY ==
--- NOTE | 2024-01-25 08:16 | MHC.PC.OV ---
Vital Signs 01/25/24 08:17 Height 5 ft 3 in Weight 210 lb 8 oz BMI 37.3 BP 142/82 H Blood Pressure Location Lt brachial Position Sitting Pulse 96 Pulse Source Pulse Oximeter Pulse Oximetry (%) 95 Oxygen Delivery Method Room Air Intake Visit Reasons: 6MoF/U Allergies penicillin V Allergy (Unknown, Verified 01/25/24 08:17) unknown Medication List - Last Reconciled 01/25/24 by Tim Nieves MD allopurinol 100 mg PO DAILY blood sugar diagnostic ([employer] Ultra Test strips) As directed blood-glucose meter ([employer] Ultra2 Meter) Use to check fasting blood sugar daily escitalopram oxalate (Lexapro) 5 mg PO DAILY glipizide 5 mg PO BID 90 days lancets ([employer] Delica Lancets) Use to check fasting blood sugar daily Tobacco use date assessed: 01/25/24 Dental Screening Dental Screen Date: 01/25/24 Did you have a dental visit in the last 12 months?: Yes Did you have a dental problem in the last 6 months where you did not have access to dental care?: No Was dental information given to patient?: Patient has dentist HPI 6MoF/U HPI Details Patient is a 58-year-old female came in today for her regular follow-up appointment She is due for labs, order placed to be done today Patient is diabetic, taking glipizide 5 mg, she tells me her sugars are still not controlled She agreed to increase the dose to 5 mg b.i.d.. Depending on what hemoglobin A1c report comes at We will readjust the medication again, I might add injectable as patient is obese as well Blood pressure is also slightly elevated but she does not want to take medication Anxiety /panic attack: she has started taking escitalopram 5 mg Tells me that she is more in control of her emotions now and feels so much better. Patient have history of prolactinoma she was seeing saturator operator Dr. Moreno However unable to get in touch with him for follow-up Last time she had MRI was 12 years ago at that time no prolactinoma was seen Her prolactin level came back normal , when we checked 4 months ago. BMI is 37.3 After the lab we will set up either telemedicine visit or provide further instructions to patient Meanwhile I am sending Glucometer and other diabetic supplies so she can start monitoring her fasting sugar Patient is to drop of sugar log in 1 week. Follow-up 3 months [facility] Medical History Dog bite of left lower leg Nasal congestion with rhinorrhea Annual physical exam Depression Anxiety Type 2 diabetes mellitus Breast calcification, left Surgical History S/P KHANH-BSO H/O colonoscopy Family History Father Hypertension Diabetes Mother Diabetes Hypertension COPD (chronic obstructive pulmonary disease) Maternal Grandfather Substance use disorder Social History Housing: House Patient Tobacco Use Status: Never used Tobacco e-Cigarette/Vaping Use: Never Used Second Hand Smoke Exposure: Yes service: No Current occupational status: employed Cognitive needs: No Hearing needs: No Vision needs: Yes Questionnaire PHQ-9 Over the last 2 weeks, how often have you been bothered by any of the following problems? 1. Little interest or pleasure in doing things: more than half the days 2. Feeling down, depressed, or hopeless: several days 3. Trouble falling or staying asleep, or sleeping too much: several days 4. Feeling tired or having little energy: several days 5. Poor appetite or overeating: several days 6. Feeling bad about yourself - or that you are a failure or have let yourself or your family down: several days 7. Trouble concentrating on things, such as reading the newspaper or watching television: not at all 8. Moving or speaking so slowly that other people could have noticed. Or the opposite - being so fidgety or restless that you have been moving around a lot more than usual: not at all 9. Thoughts that you would be better off or of hurting yourself in some way: not at all Total score: 7 Depression Screening Interpretation: Negative Depression Screening Done: Yes 12265 - PHQ-9 Billing: Yes Source: Developed by Drs. Daniel Mata, Namrata Mcguire, Sam Andres and colleagues, with an educational hyun from [employer]. Thrive Questionnaire Date Thrive assessed: 01/25/24 I am a: Patient What is your living situation today?: I have a steady place to live Within the past 12 months, did the food you bought not last and you didn't have the money to get more?: Never true Within the past 12 months, did you worry whether your food would run out before you got money to buy more?: Never true Do you have trouble paying for medicines?: No Do you have trouble getting transportation to medical appointments?: No Do you have trouble paying your heating and electricity bill?: No Do you have trouble taking care of your child, family member or friend?: No Do you have trouble with day-to-day activities such as bathing, preparing meals, shopping, managing finances, etc.?: No Are you currently unemployed and looking for a job?: Yes Are you interested in more education?: No Please select the resources that you would like help with: Housing/Custodial Currently or been in a relationship where the following occur: No concerns reported THRIVE Score: 0 AUDIT C Alcohol Use Questionnaire (AUDIT-C) 1. How often do you have a drink containing alcohol?: Never 3. How often do you have six or more drinks on one occasion?: Never Total Score: 0 Score Reviewed/Action Taken: Yes ROMMEL-7 AMB Questionnaire ROMMEL-7 Date ROMMEL - 7 assessed: 01/25/24 Feeling nervous, anxious, or on edge: 1 = Several days Not being able to stop or control worryin = Several days Worrying too much about different things: 1 = Several days Trouble relaxin = Several days Being so restless that it is hard to sit still: 0 = Not at all Becoming easily annoyed or irritable: 0 = Not at all Feeling afraid as if something awful might happen: 1 = Several days Total ROMMEL-7 score (0-4 normal; 5-9 mild; 10-14 moderate; 15-21 severe): 5 Source: Developed by Drs. Daniel Mata, Namrata Mcguire, Sam Andres and colleagues, with an educational hyun from [employer]. ROMMEL-7 Assessment Billing ROMMEL-7 Assessment Tool: ROMMEL-7 Assessment 81664 Review of Systems Const Denies chills and Denies fever(s) ENT Denies epistaxis and Denies nasal discharge Card Denies chest pain Resp Denies chest congestion, Denies cough and Denies hemoptysis GI Denies diarrhea and Denies nausea Skin/Breast Denies rash Neuro Reports no additional complaints Psych Reports no additional complaints Endo Reports no additional complaints Physical exam (Primary Care) Vital Signs: Last Vital Signs Pulse 96 01/25/24 08:17 BP 142/82 H 01/25/24 08:17 Pulse Ox 95 01/25/24 08:17 Oxygen Delivery Method Room Air 01/25/24 08:17 BMI result Body Mass Index 37.3 Tobacco/Smoking Status: Tobacco use Status Tobacco use date assessed 01/25/24 01/25/24 08:21 Patient Tobacco Use Status Never used Tobacco 01/25/24 08:21 e-Cigarette/Vaping Use Never Used 01/25/24 08:21 PHQ-9: PHQ-9 Score PHQ-9: Total score 7 01/25/24 08:26 Depression Screening Interpretation: Negative Thrive Assessment: Date of Thrive Assessment Date Thrive assessed 01/25/24 01/25/24 08:21 Currently or been in a relationship where the following occur: No concerns reported Const General: cooperative, comfortable and no acute distress Orientation/consciousness: patient oriented x3 HENMT Head: Yes normocephalic Eyes General: appearance normal, both eyes and all related structures Neck Neck: Yes supple Resp Effort & Inspection: normal respiratory effort, no cough and no stridor Cardio Rhythm: regular rhythm Heart sounds: S1 normal heart sound present and S2 normal heart sound present Skin General skin exam: turgor normal Neuro General: patient oriented x3, tone normal and moves all extremities Extrem Right lower extremity: no edema Left lower extremity: no edema Assessment and Plan Assessment & Plan (1) DM type 2 (diabetes mellitus, type 2): Code(s): E11.9 - Type 2 diabetes mellitus without complications Qualifiers: Diabetes mellitus complication status: without complication Diabetes mellitus machine long goods helper insulin use: without chcf use Qualified Code(s): E11.9 - Type 2 diabetes mellitus without complications (2) Generalized anxiety disorder with panic attacks: Code(s): F41.1 - Generalized anxiety disorder; F41.0 - Panic disorder [episodic paroxysmal anxiety] (3) Gout: Code(s): M10.9 - Gout, unspecified Qualifiers: Chronicity: acute Gout etiology: idiopathic Gout site: ankle Laterality: left Qualified Code(s): M10.072 - Idiopathic gout, left ankle and foot (4) Lipid disorder: Code(s): E78.9 - Disorder of lipoprotein metabolism, unspecified (5) Irritable bowel syndrome with diarrhea: Code(s): K58.0 - Irritable bowel syndrome with diarrhea (6) Obesity due to excess calories: Code(s): E66.09 - Other obesity due to excess calories Qualifiers: Body mass index: BMI 38.0-38.9 Obesity classification: adult class 2 (BMI 35 - 39.9) Serious obesity comorbidity presence: with serious comorbidity Qualified Code(s): E66.01 - Morbid (severe) obesity due to excess calories; Z68.38 - Body mass index [BMI] 38.0-38.9, adult (7) Elevated uric acid in blood: Code(s): E79.0 - Hyperuricemia without signs of inflammatory arthritis and tophaceous disease (8) Major depression, recurrent: Code(s): F33.9 - Major depressive disorder, recurrent, unspecified Qualifiers: Active/Remission status: currently active Major depression episode severity: moderate Qualified Code(s): F33.1 - Major depressive disorder, recurrent, moderate (9) Arthrosis: Code(s): M19.90 - Unspecified osteoarthritis, unspecified site (10) 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 Plan Patient is a 58-year-old female came in today for her regular follow-up appointment She is due for labs, order placed to be done today Patient is diabetic, taking glipizide 5 mg, she tells me her sugars are still not controlled She agreed to increase the dose to 5 mg b.i.d.. Depending on what hemoglobin A1c report comes at We will readjust the medication again, I might add injectable as patient is obese as well Blood pressure is also slightly elevated but she does not want to take medication Anxiety /panic attack: she has started taking escitalopram 5 mg Tells me that she is more in control of her emotions now and feels so much better. Patient have history of prolactinoma she was seeing saturator operator Dr. Moreno However unable to get in touch with him for follow-up Last time she had MRI was 12 years ago at that time no prolactinoma was seen Her prolactin level came back normal , when we checked 4 months ago. BMI is 37.3 After the lab we will set up either telemedicine visit or provide further instructions to patient Meanwhile I am sending Glucometer and other diabetic supplies so she can start monitoring her fasting sugar Patient is to drop of sugar log in 1 week. Follow-up 3 months Orders: Orders Complete Blood Count Auto Diff Today E11.9 - Type 2 diabetes mellitus without complications, E78.9 - Disorder of lipoprotein metabolism, unspecified, E79.0 - Hyperuricemia without signs of inflammatory arthritis and tophaceous disease, F41.1 - Generalized anxiety disorder, K58.0 - Irritable bowel syndrome with diarrhea, M10.072 - Idiopathic gout, left ankle and foot Comprehensive Met. Panel Today E11.9 - Type 2 diabetes mellitus without complications, E78.9 - Disorder of lipoprotein metabolism, unspecified, E79.0 - Hyperuricemia without signs of inflammatory arthritis and tophaceous disease, F41.1 - Generalized anxiety disorder, K58.0 - Irritable bowel syndrome with diarrhea, M10.072 - Idiopathic gout, left ankle and foot Hemoglobin A1c Today E11.9 - Type 2 diabetes mellitus without complications, E78.9 - Disorder of lipoprotein metabolism, unspecified, E79.0 - Hyperuricemia without signs of inflammatory arthritis and tophaceous disease, F41.1 - Generalized anxiety disorder, K58.0 - Irritable bowel syndrome with diarrhea, M10.072 - Idiopathic gout, left ankle and foot Uric Acid Today E11.9 - Type 2 diabetes mellitus without complications, E78.9 - Disorder of lipoprotein metabolism, unspecified, E79.0 - Hyperuricemia without signs of inflammatory arthritis and tophaceous disease, F41.1 - Generalized anxiety disorder, K58.0 - Irritable bowel syndrome with diarrhea, M10.072 - Idiopathic gout, left ankle and foot LDL Cholesterol Direct Today E11.9 - Type 2 diabetes mellitus without complications, E78.9 - Disorder of lipoprotein metabolism, unspecified, E79.0 - Hyperuricemia without signs of inflammatory arthritis and tophaceous disease, F41.1 - Generalized anxiety disorder, K58.0 - Irritable bowel syndrome with diarrhea, M10.072 - Idiopathic gout, left ankle and foot Medications: Changed From glipizide 5 mg PO DAILY 90 days 90 tabs 1RF To glipizide 5 mg PO BID 180 tabs 0RF 90 days Coding Level of Care Code Est Pt Level 4 (71194) Diagnoses Type 2 diabetes mellitus without complication, without long-term current use of insulin E11.9 Diabetes mellitus complication status: without complication Diabetes mellitus chcf insulin use: without machine long goods helper use Generalized anxiety disorder with panic attacks F41.1; F41.0 Acute idiopathic gout of left ankle M10.072 Chronicity: acute Gout etiology: idiopathic Gout site: ankle Laterality: left 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 Irritable bowel syndrome with diarrhea K58.0 Class 2 severe obesity due to excess calories with serious comorbidity and body mass index (BMI) of 38.0 to 38.9 in adult E66.01; Z68.38 Body mass index: BMI 38.0-38.9 Obesity classification: adult class 2 (BMI 35 - 39.9) Serious obesity comorbidity presence: with serious comorbidity Elevated uric acid in blood E79.0 Moderate episode of recurrent major depressive disorder F33.1 Active/Remission status: currently active Major depression episode severity: moderate Arthrosis M19.90 Prolactinoma D35.2 Additional Codes ROMMEL-7 Assessment Billing - ROMMEL-7 Assessment Tool: ROMMEL-7 Assessment 18129 ([id number])
[2024-01-25 08:17] VITALS: BP 142/82; PULSE 96; O2SAT 95; BMI 37.3
== END 2024-01-25 08:41 | disposition home or self-care (01) ==
PROVIDERS: PCP Internal Medicine; Visit Provider Internal Medicine
DX: E11.9 Type 2 diabetes mellitus without complications (principal); E66.01 Morbid (severe) obesity due to excess calories; F33.1 Major depressive disorder, recurrent, moderate; D35.2 Benign neoplasm of pituitary gland; Z68.38 Body mass index [BMI] 38.0-38.9, adult; F41.1 Generalized anxiety disorder; F41.0 Panic disorder [episodic paroxysmal anxiety]; M10.072 Idiopathic gout, left ankle and foot; E78.9 Disorder of lipoprotein metabolism, unspecified; K58.0 Irritable bowel syndrome with diarrhea; E79.0 Hyperuricemia without signs of inflammatory arthritis and tophaceous disease; M19.90 Unspecified osteoarthritis, unspecified site
CPT/HCPCS: 99214

== ENCOUNTER 2024-01-25 08:42 | Outpatient (REF) | payer BC, SELFPAY ==
[2024-01-25 10:02] LABS: MANUAL DIFF FLAG NO
[2024-01-25 10:04] LABS: Basophils Percent Auto 0.6 % (0-2); Eosinophils Absolute Auto 0.1 X10*3/uL (0.0-0.4); Eosinophils Percent Auto 1.2 % (0-4); Hematocrit 41.4 % (37.0-47.0); Hemoglobin 14.8 g/dl (12.0-16.0); Imm Gran Abs Auto 0.07 X10*3/uL (0.00-0.03); Lymphocytes Absolute Auto 3.2 X10*3/uL (1.2-4.9); Lymphocytes Percent Auto 45.8 % (20-40); Mean Corpuscular HGB Conc 35.7 g/dl (31.0-35.0); Mean Corpuscular Hemoglobin 31.2 pg (27.0-33.0); Mean Corpuscular Volume 87.2 fL (80.0-98.0); Mean Platelet Volume 9.7 fL (9.4-12.3); Monocytes Absolute Auto 0.8 X10*3/uL (0.1-1.2); Monocytes Percent Auto 11.5 % (2-11); Neutrophils Absolute Auto 2.8 x10*3/uL (2.0-8.3); Neutrophils Percent Auto 39.9 % (45-73); Platelet Count 293 X10*3/uL (160-400); Red Blood Count 4.75 X10*6/uL (4.20-5.50); Red Cell Distribution Width 11.9 % (11.0-16.0); White Blood Count 6.9 X10*3/uL (4.8-10.8)
[2024-01-25 10:27] LABS: Alanine Aminotransferase 73 U/L (0-31); Albumin Level 4.3 g/dL (3.5-5.0); Alkaline Phosphatase 90 U/L (39-117); Anion Gap 13 (12-20); Aspartate Amino Transferase 40 U/L (5-31); Bilirubin Total 0.5 mg/dL (0.0-1.0); Blood Urea Nitrogen 22 mg/dL (9-16); Calcium 10.1 mg/dL (8.4-10.2); Carbon Dioxide 27 mmol/L (22-29); Chloride 102 mmol/L (96-108); Estimated Glomerular Filt Rate > 60; Glucose Random 247 mg/dL (60-115); Potassium 4.3 mmol/L (3.3-5.1); Sodium 138 mmol/L (135-145); Total Protein 7.1 g/dL (6.5-8.0); Uric Acid 8.2 mg/dL (2.4-5.7)
[2024-01-25 11:03] LABS: Estimated Average Glucose 212 mg/dL
[2024-01-26 10:59] LABS: LDL Cholesterol Direct 126 mg/dL (<100)
== END 2024-01-25 08:43 | disposition home or self-care (01) ==
LOC: HO.HMGCLDS 08:42
PROVIDERS: PCP Internal Medicine; Visit Provider Internal Medicine
DX: E11.9 Type 2 diabetes mellitus without complications (principal); M10.072 Idiopathic gout, left ankle and foot; E78.9 Disorder of lipoprotein metabolism, unspecified; F41.1 Generalized anxiety disorder; K58.0 Irritable bowel syndrome with diarrhea
CPT/HCPCS: 36415; 80053; 83036; 83721; 84550; 85025

== ENCOUNTER 2024-02-27 13:01 | Outpatient (AMB) | payer BC, SELFPAY ==
--- NOTE | 2024-02-27 13:05 | A.OFFVIS_ITS ---
Vital Signs 02/27/24 13:06 Height 5 ft 3 in Weight 211 lb 10.3 oz BMI 37.5 BP 140/82 H Blood Pressure Location Rt brachial Position Sitting Pulse 82 Pulse Source Pulse Oximeter Intake Visit Reasons: DM/CONFIRMED Intake Note: NEW Patient presents today to establish treatment for Type 2 Diabetes Mellitus: Last Diabetic eye exam was on: DUE Last Podiatry exam was on: Does not see a Hand I Tube Bender Most recent HbA1c: 9.0%, 01/25/2024 Random Glucose- 213 mg/dL, Today Auditing Control Clerk Required: No Accompanied by: Self / Same As Patient Allergies penicillin V Allergy (Unknown, Verified 01/25/24 08:17) unknown HPI Comments Details: 58 year old female with type 2 diabetes presenting for consultation Diagnosed one year ago with diabetes Current medications: glipizide 03/22 currently. A1C last month 8.2%. Did not ever take metformin due to irritable bowel. Glucometer shows testing once daily fasting. Recent readings 175-238 fasting. Lost her brother one year ago from heart problems. Lost her mother, who had severe dementia soon after. Even more recently lost her 17 year old dog. Says she is committed to taking care of herself now that her son is back at school. She plans to start walking this week. She has started to decrease carbs in the diet. She has seen nutrition in the past. She tells me she has a good grasp of diabetes. 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 Aware of symptoms and treatment ROS CONSTITUTIONAL: Denies weight loss, fever and chills. HEENT: Denies changes in vision and hearing. RESPIRATORY: Denies SOB and cough. CV: Denies palpitations and CP GI: Denies abdominal pain, nausea, vomiting and diarrhea. : Denies dysuria and urinary frequency. MSK: Denies new myalgia and joint pain. SKIN: Denies rash and pruritus. NEUROLOGICAL: Denies headache PSYCHIATRIC: Denies recent changes in mood. PHYSICAL EXAM: GENERAL: Alert and oriented x 3. NAD EYES: EOMI. Anicteric. HENT: Moist mucous membranes. No scleral icterus. No cervical lymphadenopathy. LUNGS: Clear to auscultation bilaterally. CARDIOVASCULAR: Regular rate and rhythm. No murmur. No JVD. ABDOMEN: Soft, non-tender +bs EXTREMITIES: No edema. Non-tender. +DP pulses SKIN: No rashes or lesions. Warm. NEUROLOGIC: LE sensation intact. CN II-XII grossly intact PSYCHIATRIC: Cooperative. Appropriate mood and affect [facility] Medical History Dog bite of left lower leg Nasal congestion with rhinorrhea Annual physical exam Depression Anxiety Type 2 diabetes mellitus Breast calcification, left Surgical History S/P KHANH-BSO H/O colonoscopy Family History Father Hypertension Diabetes Mother Diabetes Hypertension COPD (chronic obstructive pulmonary disease) Maternal Grandfather Substance use disorder Social History Housing: House Patient Tobacco Use Status: Never used Tobacco e-Cigarette/Vaping Use: Never Used Second Hand Smoke Exposure: Yes service: No Current occupational status: employed Cognitive needs: No Hearing needs: No Vision needs: Yes Physical Exam Vital Signs: Last Vital Signs Pulse 82 02/27/24 13:06 BP 140/82 H 02/27/24 13:06 BMI result Body Mass Index 37.5 Results Reviewed Results Reviewed: Laboratory Last Values Glucose (Clinic) 213 mg/dL (60-115) H 02/27/24 13:11 Assessment & Plan Assessment & Plan (1) DM type 2 (diabetes mellitus, type 2): Code(s): E11.9 - Type 2 diabetes mellitus without complications Category: Medical Qualifiers: Diabetes mellitus complication status: without complication Diabetes mellitus assisted insulin use: without terminal make up operator use Qualified Code(s): E11.9 - Type 2 diabetes mellitus without complications Plan: Improving control in the last few months. She declines medication at present as she has only started the increased glipizide 10/5 for the past ~3 weeks. She plans to institute more dietary changes and start walking. She will return in one month and consider medication changes/additions if control is still suboptimal Aware of need for atleast annual diabetic eye exams Coding Level of Care Code Est Pt Level 5 (66577) Diagnoses Type 2 diabetes mellitus without complication, without long-term current use of insulin E11.9 Diabetes mellitus complication status: without complication Diabetes mellitus assisted insulin use: without terminal make up operator use
[2024-02-27 13:06] VITALS: BP 140/82; PULSE 82; BMI 37.5
[2024-02-27 13:15] LABS: Glucose, Whole Blood 213 mg/dL (60-115)
== END 2024-02-27 13:38 | disposition home or self-care (01) ==
PROVIDERS: PCP Internal Medicine; Visit Provider Internal Medicine
DX: E11.9 Type 2 diabetes mellitus without complications (principal)
CPT/HCPCS: 99214

== ENCOUNTER → 2024-02-27 13:01 | Outpatient (BNVA) | payer BC, SELFPAY | PROVIDERS: PCP Internal Medicine; Visit Provider Internal Medicine | DX: E11.9 Type 2 diabetes mellitus without complications (principal); Z79.84 Long term (current) use of oral hypoglycemic drugs | CPT/HCPCS: 82947 ==

== ENCOUNTER 2024-03-10 12:46 | Outpatient (AMB) | payer BC, SELFPAY ==
--- NOTE | 2024-03-10 12:47 | AM.OFFWIN_ITS ---
Intake Vital Signs 03/10/24 12:48 Height 5 ft 3 in Weight 213 lb BMI 37.7 BP 134/82 Blood Pressure Location Rt brachial Position Sitting Pulse 82 Pulse Source Pulse Oximeter Temp 98.4 F Temp Source Oral Pulse Oximetry (%) 98 Oxygen Delivery Method Room Air Intake Visit Reasons: EP-rt ear block, pain & blood discharge Intake Note: pt c/o RT ear blocked, painful w/ bloody discharge. Ongoing. Intermittent Patient Tobacco Use Status: Never used Tobacco Allergies penicillin V Allergy (Unknown, Verified 03/10/24 12:48) unknown Do you need a note to return to daycare/school/sports/work: No HPI EP-rt ear block, pain & blood discharge HPI Details This note is constructed using voice recognition software. While every effort has been made to ensure accuracy, immigration investigator errors may have been included. The patient is a 58 year old female who presents to the clinic today with right- sided ear blockage. She notes that chronically she has cerumen impaction, and she has had the ears irrigated in the past. She had been using a Q-tip to attempt to remove the cerumen and scratched the inside of her ear with some blood on Q-tip, over there was no additional discharge. Her hearing has not changed despite the use of the Q-tip, and has remained slightly dulled. She denies fever, chills, cough, shortness of breath. [facility] Medical History Dog bite of left lower leg Nasal congestion with rhinorrhea Annual physical exam Depression Anxiety Type 2 diabetes mellitus Breast calcification, left Surgical History S/P KHANH-BSO H/O colonoscopy Family History Father Hypertension Diabetes Mother Diabetes Hypertension COPD (chronic obstructive pulmonary disease) Maternal Grandfather Substance use disorder Social History Housing: House Patient Tobacco Use Status: Never used Tobacco e-Cigarette/Vaping Use: Never Used Second Hand Smoke Exposure: Yes service: No Current occupational status: employed Cognitive needs: No Hearing needs: No Vision needs: Yes Review of Systems Const All systems reviewed & are unremarkable except as noted in HPI and below Physical Exam Vital Signs: Last Vital Signs Temp 98.4 F 03/10/24 12:48 Pulse 82 03/10/24 12:48 BP 134/82 03/10/24 12:48 Pulse Ox 98 03/10/24 12:48 Oxygen Delivery Method Room Air 03/10/24 12:48 BMI result Body Mass Index 37.7 Const General: cooperative, healthy appearing, comfortable and no acute distress Orientation/consciousness: patient oriented x3 HEENT Head: Yes normal to inspection and Yes normocephalic Ears: EAC's normal, mastoids normal and unable to visualize TM (cerumen impaction) on the right General nose exam: Normal external nose present Face and sinus: Yes normal facial exam Resp Effort & Inspection: normal respiratory effort and able to speak in complete sentences Neuro General: patient oriented x3 Office Procedures Cerumen Removal From which ear canal was the cerumen removed: right Removal: irrigation Notes: patient tolerated procedure well and no complications [id number] Irrigation/Lavage Assessment & Plan Assessment & Plan (1) Impacted cerumen of right ear: Code(s): H61.21 - Impacted cerumen, right ear Plan: In office irrigation unsuccessful, however patient did experience some improvement in symptoms. Advised patient to use Debrox or other generic cerumen softening product to help improve her current situation and for generalized maintenance. Advised avoidance of sticking items into the ear. Advised follow up as needed with worsening symptoms. Plan See above for full details and plan. Coding Level of Care Code Est Pt Level 4 (35985) Diagnoses Impacted cerumen of right ear H61.21 CPT Codes Office Procedure - CPT: 37138-Dem Irrigation/Lavage ([id number])
[2024-03-10 12:48] VITALS: BP 134/82; PULSE 82; TEMP 36.9; O2SAT 98; BMI 37.7
== END 2024-03-10 13:45 | disposition home or self-care (01) ==
PROVIDERS: PCP Internal Medicine; Visit Provider Registered Nurse
DX: H61.21 Impacted cerumen, right ear (principal)

== ENCOUNTER → 2024-03-10 12:46 | Outpatient (BNVA) | payer BC, SELFPAY | PROVIDERS: PCP Internal Medicine | DX: H61.21 Impacted cerumen, right ear (principal) | CPT/HCPCS: 69209 ==

== ENCOUNTER 2024-04-02 12:48 | Outpatient (AMB) | payer BC, SELFPAY ==
--- NOTE | 2024-04-02 12:55 | A.OFFVIS_ITS ---
Vital Signs 04/02/24 12:57 Height 5 ft 3 in Weight 211 lb 10.3 oz BMI 37.5 BP 122/68 Blood Pressure Location Rt brachial Position Sitting Pulse 95 Pulse Source Pulse Oximeter Intake Visit Reasons: DM Intake Note: Patient presents today for a follow-up on Type 2 Diabetes Mellitus: Last Diabetic eye exam was on: DUE Last Podiatry exam was on: Does not see a Manager Privacy Most recent HbA1c: 9.0%, 01/25/2024 Random Glucose- 233mg/dL, Today Insurance Sales Agent Required: No Accompanied by: Self / Same As Patient Allergies penicillin V Allergy (Unknown, Verified 04/02/24 12:56) unknown HPI Comments Details: 58 year old female with type 2 diabetes presenting for consultation Diagnosed one year ago with diabetes Current medications: glipizide 03/22 currently. A1C last month 8.2%. Did not ever take metformin due to irritable bowel. Glucometer shows testing once daily fasting. Recent readings 160-230s fasting. She wanted a month to attempt losing weight and getting glucose down with keto diet but unfortunately it didn't work as it has worked for her in the past. She recently stopped her lexapro as she is unable to control her appetite on the medication. She is doing ok off the meds Lost her brother one year ago from heart problems. Lost her mother, who had severe dementia soon after. Even more recently lost her 17 year old dog. Says she is committed to taking care of herself now that her son is back at school. She plans to start walking this week. She has started to decrease carbs in the diet. She has seen nutrition in the past. She tells me she has a good grasp of diabetes. 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 Aware of symptoms and treatment ROS CONSTITUTIONAL: Denies weight loss, fever and chills. HEENT: Denies changes in vision and hearing. RESPIRATORY: Denies SOB and cough. CV: Denies palpitations and CP GI: Denies abdominal pain, nausea, vomiting and diarrhea. : Denies dysuria and urinary frequency. MSK: Denies new myalgia and joint pain. SKIN: Denies rash and pruritus. NEUROLOGICAL: Denies headache PSYCHIATRIC: Denies recent changes in mood. PHYSICAL EXAM: GENERAL: Alert and oriented x 3. NAD EYES: EOMI. Anicteric. HENT: Moist mucous membranes. No scleral icterus. No cervical lymphadenopathy. LUNGS: Clear to auscultation bilaterally. CARDIOVASCULAR: Regular rate and rhythm. No murmur. No JVD. ABDOMEN: Soft, non-tender +bs EXTREMITIES: No edema. Non-tender. +DP pulses SKIN: No rashes or lesions. Warm. NEUROLOGIC: LE sensation intact. CN II-XII grossly intact PSYCHIATRIC: Cooperative. Appropriate mood and affect [facility] Medical History Dog bite of left lower leg Nasal congestion with rhinorrhea Annual physical exam Depression Anxiety Type 2 diabetes mellitus Breast calcification, left Surgical History S/P KHANH-BSO H/O colonoscopy Family History Father Hypertension Diabetes Mother Diabetes Hypertension COPD (chronic obstructive pulmonary disease) Maternal Grandfather Substance use disorder Social History Housing: House Patient Tobacco Use Status: Never used Tobacco e-Cigarette/Vaping Use: Never Used Second Hand Smoke Exposure: Yes service: No Current occupational status: employed Cognitive needs: No Hearing needs: No Vision needs: Yes Physical Exam Vital Signs: Last Vital Signs Pulse 95 04/02/24 12:57 BP 122/68 04/02/24 12:57 BMI result Body Mass Index 37.5 Assessment & Plan Assessment & Plan (1) DM type 2 (diabetes mellitus, type 2): Code(s): E11.9 - Type 2 diabetes mellitus without complications Category: Medical Qualifiers: Diabetes mellitus halfway insulin use: without street sprinkler use Diabetes mellitus complication status: without complication Qualified Code(s): E11.9 - Type 2 diabetes mellitus without complications Plan: Uncontrolled Discussed different treatment options She would like to pursue GLP therapy. She will start mounjaro 2.5 weekly, continue glipizide. She will continue to monitor glucose and follow up in 2 months Medications: New tirzepatide (Mounjaro) for 4 weeks 2.5 mg (0.5 mL) subcut QWEEK 4 weeks 6 mL 3RF ondansetron HCl 4 mg PO Q8H PRN 30 tabs 3RF nausea and vomiting Coding Level of Care Code Est Pt Level 4 (44024) Diagnoses Type 2 diabetes mellitus without complication, without long-term current use of insulin E11.[address] sprinkler insulin use: without halfway use Diabetes mellitus complication status: without complication
[2024-04-02 12:57] VITALS: BP 122/68; PULSE 95; BMI 37.5
[2024-04-02 13:08] LABS: Glucose, Whole Blood 233 mg/dL (60-115)
== END 2024-04-02 13:21 | disposition home or self-care (01) ==
PROVIDERS: PCP Internal Medicine; Visit Provider Internal Medicine
DX: E11.9 Type 2 diabetes mellitus without complications (principal)

== ENCOUNTER → 2024-04-02 12:48 | Outpatient (BNVA) | payer BC, SELFPAY | PROVIDERS: PCP Internal Medicine; Visit Provider Internal Medicine | DX: E11.9 Type 2 diabetes mellitus without complications (principal) | CPT/HCPCS: 82947 ==

== ENCOUNTER 2024-06-04 15:50 | Outpatient (AMB) | payer BC, SELFPAY ==
--- NOTE | 2024-06-04 15:51 | A.OFFVIS_ITS ---
Vital Signs 06/04/24 15:58 Height 5 ft 3 in Weight 209 lb 7.026 oz BMI 37.1 BP 130/80 Blood Pressure Location Rt brachial Position Sitting Pulse 76 Pulse Source Pulse Oximeter Intake Visit Reasons: DM Intake Note: Patient presents today for a follow-up on Type 2 Diabetes Mellitus: Last Diabetic eye exam was on: DUE Last Podiatry exam was on: Does not see a Recreation Teacher Most recent HbA1c: 7.9%, 06/04/2024 Random Glucose- 166 mg/dL, Today Chain Pegger Required: No Accompanied by: Self / Same As Patient Allergies penicillin V Allergy (Unknown, Verified 06/04/24 15:52) unknown Medication List - Last Reconciled 06/04/24 by Letitia Meek MD alcohol swabs (Alcohol Prep Pads) 1 pad topical DAILY allopurinol 100 mg PO DAILY blood sugar diagnostic (OneTouch Ultra Test strips) As directed blood-glucose meter (OneTouch Ultra2 Meter) Use to check fasting blood sugar daily escitalopram oxalate (Lexapro) 5 mg PO DAILY glipizide Two tablets in the morning and 1 at night 90 days lancets Use to check fasting blood sugar daily ondansetron HCl 4 mg PO Q8H PRN tirzepatide (Mounjaro) 2.5 mg (0.5 mL) subcut QWEEK 4 weeks tirzepatide (Mounjaro) 5 mg (0.5 mL) subcut QWEEK HPI Comments Details: 58 year old female with type 2 diabetes presenting for follow up Diagnosed one year ago with diabetes Current medications: glipizide, mounjaro 5 weekly. A1C 7.9%, last month 8.2%. Did not ever take metformin due to irritable bowel. Glucometer shows testing once daily fasting. Recent readings 160-230s fasting. She has been losing some weight with mounjaro. Lost her brother one year ago from heart problems. Lost her mother, who had severe dementia soon after. Even more recently lost her 17 year old dog. Says she is committed to taking care of herself now that her son is back at school. She plans to start walking this week. She has started to decrease carbs in the diet. She has seen nutrition in the past. She tells me she has a good grasp of diabetes. 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 Aware of symptoms and treatment ROS CONSTITUTIONAL: Denies weight loss, fever and chills. HEENT: Denies changes in vision and hearing. RESPIRATORY: Denies SOB and cough. CV: Denies palpitations and CP GI: Denies abdominal pain, nausea, vomiting and diarrhea. : Denies dysuria and urinary frequency. MSK: Denies new myalgia and joint pain. SKIN: Denies rash and pruritus. NEUROLOGICAL: Denies headache PSYCHIATRIC: Denies recent changes in mood. PHYSICAL EXAM: GENERAL: Alert and oriented x 3. NAD EYES: EOMI. Anicteric. HENT: Moist mucous membranes. No scleral icterus. No cervical lymphadenopathy. LUNGS: Clear to auscultation bilaterally. CARDIOVASCULAR: Regular rate and rhythm. No murmur. No JVD. ABDOMEN: Soft, non-tender +bs EXTREMITIES: No edema. Non-tender. +DP pulses SKIN: No rashes or lesions. Warm. NEUROLOGIC: LE sensation intact. CN II-XII grossly intact PSYCHIATRIC: Cooperative. Appropriate mood and affect [facility] Medical History Dog bite of left lower leg Nasal congestion with rhinorrhea Annual physical exam Depression Anxiety Type 2 diabetes mellitus Breast calcification, left Surgical History S/P KHANH-BSO H/O colonoscopy Family History Father Hypertension Diabetes Mother Diabetes Hypertension COPD (chronic obstructive pulmonary disease) Maternal Grandfather Substance use disorder Social History Housing: House Patient Tobacco Use Status: Never used Tobacco e-Cigarette/Vaping Use: Never Used Second Hand Smoke Exposure: Yes service: No Current occupational status: employed Cognitive needs: No Hearing needs: No Vision needs: Yes Physical Exam Vital Signs: Last Vital Signs Pulse 76 06/04/24 15:58 BP 130/80 06/04/24 15:58 BMI result Body Mass Index 37.1 Results AMB Hemoglobin A1c AMB Hemoglobin A1c 7.9 % Last Edit by CANDACE Fernandez on 06/04/24 16:15 Results Reviewed Results Reviewed: Laboratory Last Values Glucose (Clinic) 166 mg/dL (60-115) H 06/04/24 16:01 Hgb A1c (Clinic) 7.9 % (4.0-6.0) H 06/04/24 16:14 Assessment & Plan Assessment & Plan (1) DM type 2 (diabetes mellitus, type 2): Code(s): E11.9 - Type 2 diabetes mellitus without complications Category: Medical Qualifiers: Diabetes mellitus complication status: without complication Diabetes mellitus senior sales administrator insulin use: without custodial use Qualified Code(s): E11.9 - Type 2 diabetes mellitus without complications Plan: Improving glycemic control, though still above goal. Congratulated on interval weight loss. Increase mounjaro to 7.5 weekly Orders: Orders AMB Hemoglobin A1c 06/04/24 E11.9 - Type 2 diabetes mellitus without complications Medications: New tirzepatide (Mounjaro) 7.5 mg (0.5 mL) subcut QWEEK 6 mL 3RF Discontinued tirzepatide (Mounjaro) for 4 weeks Discontinued Reason: Doctor's Order 2.5 mg (0.5 mL) subcut QWEEK 4 weeks 6 mL 3RF tirzepatide (Mounjaro) Discontinued Reason: Duplicate 5 mg (0.5 mL) subcut QWEEK 6 mL 3RF E11.9 - Type 2 diabetes mellitus without complications, E66.01 - Morbid (severe) obesity due to excess calories, Z68.38 - Body mass index [BMI] 38.0-38.9, adult Coding Level of Care Code Est Pt Level 4 (80383) Diagnoses Type 2 diabetes mellitus without complication, without long-term current use of insulin E11.9 Diabetes mellitus complication status: without complication Diabetes mellitus senior sales administrator insulin use: without custodial use
[2024-06-04 15:58] VITALS: BP 130/80; PULSE 76; BMI 37.1
[2024-06-04 16:06] LABS: Glucose, Whole Blood 166 mg/dL (60-115)
--- OUTSIDE RECORDS SUMMARY | 2024-06-04 16:13 | XMS_ITS | Continuity of Care Document ---
Author Organization [facility] PASTEURIZING MACHINE OPERATOR Oncolog y Address [address] [place] [address]- Care Team Providers Care [employer] Workers Name Role Phone Hannah Topete MD Primary Care Physician [id number] Date(s): 01/30/24 - 05/29/24 [facility] PASTEURIZING MACHINE OPERATOR Oncology [address] [place] [id number] Attending Physician: Dorian Hawkins MD Admitting Physician: Dorian Hawkins MD Referring Physician: Hannah Topete MD Encounter Type: Pre-OutPatient One Time Allergies, Adverse Reactions, Alerts Substance Criticality Severity Reaction Reaction Severity Status penicillins Unable to assess criticality Persistent Severe rash Active Medications glipiZIDE 5 mg oral tablet 5 mg, 1, tablet, By Mouth, Daily, Refills 0, Maintenance, 05/01/23 10:54:00 AM EST, Partial fill upon patient request if the prescription is for a schedule II opioid drug. Start Date: 05/01/23 Status: Ordered Repeat number: 1 Mounjaro 2.5 mg/0.5 mL subcutaneous solution = 2.5 mg, Subcutaneous Injection, Every week, rotate injection sites, # 4 each, 0 Refills, Maintenance, 05/12/24 4:00:00 PM EST, Solution, Partial fill upon patient request if the prescription is fora schedule II opioid drug. Start Date: 05/12/24 Status: Ordered Quantity: 4.0 Unit: each Repeat number: 1 Problem List Condition Confirmation Course Effective Dates Status Health St atus Informant History of endometrial cancer Confirmed Active Endometrial cancer Confirmed Active Obese class II Confirmed Active Social History Social History Type Response Smoking Status Never smoker entered on: 07/28/16 Sex Sex Representation Female (finding) Patient Care team information Care Team Personnel Name: Hannah Topete MD Position: S Physician - Primary Care Member Role: PCP Address: [address] Telecom: Care Team Related Persons Name: ERIC PLUMMER Name: OLAYINKA DC Name: ELIZABETH DC Name: NO, ONE Insurance Providers Guarantor name: DOE DC Health Plan Information #: 1 Payer: [employer] E[employer] Member Number: [id number] Policy Number: NA Group Number: [id number] Health Plan Information #: 2 Payer: [employer] Member Number: [id number] Policy Number: NA Group Number: [id number]
== END 2024-06-04 16:27 | disposition home or self-care (01) ==
PROVIDERS: PCP Internal Medicine; Visit Provider Internal Medicine
DX: E11.9 Type 2 diabetes mellitus without complications (principal)

== ENCOUNTER 2024-09-10 14:32 | Outpatient (AMB) | payer BC, SELFPAY ==
[2024-09-10 14:35] VITALS: BP 138/76; PULSE 66; O2SAT 96; BMI 37.3
--- NOTE | 2024-09-10 14:35 | A.OFFVIS_ITS ---
Vital Signs 09/10/24 14:35 Height 5 ft 3 in Weight 210 lb 10.3 oz BMI 37.3 BP 138/76 Blood Pressure Location Rt brachial Position Sitting Pulse 66 Pulse Source Pulse Oximeter Pulse Oximetry (%) 96 Oxygen Delivery Method Room Air Intake Visit Reasons: DM Intake Note: Patient presents today for a follow-up on Type 2 Diabetes Mellitus: Last Diabetic eye exam was on: DUE Last Podiatry exam was on: Does not see a Roving Hand Most recent HbA1c: 7.0%, 09/10/2024 Random Glucose- 147 mg/dL, Today Protective Officer Required: No Accompanied by: Self / Same As Patient Allergies penicillin V Allergy (Unknown, Verified 09/10/24 14:35) unknown HPI Comments Details: 58 year old female with type 2 diabetes presenting for follow up Diagnosed one year ago with diabetes Current medications: glipizide, mounjaro 7.5 (increased from 5 weekly 3 months ago) . A1C 7.9%, last month 8.2%. Did not ever take metformin due to irritable bowel. Glucometer shows testing once daily fasting. Recent readings 160-230s fasting. She has been losing some weight with mounjaro. Lost her brother one year ago from heart problems. Lost her mother, who had severe dementia soon after. Even more recently lost her 17 year old dog. Says she is committed to taking care of herself now that her son is back at school. She plans to start walking this week. She has started to decrease carbs in the diet. She has seen nutrition in the past. She tells me she has a good grasp of diabetes. 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 Aware of symptoms and treatment ROS CONSTITUTIONAL: Denies weight loss, fever and chills. HEENT: Denies changes in vision and hearing. RESPIRATORY: Denies SOB and cough. CV: Denies palpitations and CP GI: Denies abdominal pain, nausea, vomiting and diarrhea. : Denies dysuria and urinary frequency. MSK: Denies new myalgia and joint pain. SKIN: Denies rash and pruritus. NEUROLOGICAL: Denies headache PSYCHIATRIC: Denies recent changes in mood. PHYSICAL EXAM: GENERAL: Alert and oriented x 3. NAD EYES: EOMI. Anicteric. HENT: Moist mucous membranes. No scleral icterus. No cervical lymphadenopathy. LUNGS: Clear to auscultation bilaterally. CARDIOVASCULAR: Regular rate and rhythm. No murmur. No JVD. ABDOMEN: Soft, non-tender +bs EXTREMITIES: No edema. Non-tender. +DP pulses SKIN: No rashes or lesions. Warm. NEUROLOGIC: LE sensation intact. CN II-XII grossly intact PSYCHIATRIC: Cooperative. Appropriate mood and affect [facility] Medical History Dog bite of left lower leg Nasal congestion with rhinorrhea Annual physical exam Depression Anxiety Type 2 diabetes mellitus Breast calcification, left Surgical History S/P KHANH-BSO H/O colonoscopy Family History Father Hypertension Diabetes Mother Diabetes Hypertension COPD (chronic obstructive pulmonary disease) Maternal Grandfather Substance use disorder Social History Housing: House Patient Tobacco Use Status: Never used Tobacco e-Cigarette/Vaping Use: Never Used Second Hand Smoke Exposure: Yes service: No Current occupational status: employed Cognitive needs: No Hearing needs: No Vision needs: Yes Physical Exam Vital Signs: BMI result Body Mass Index 37.3 Results AMB Hemoglobin A1c AMB Hemoglobin A1c 7.0 % Last Edit by CANDACE Fernandez on 09/10/24 15:00 Assessment & Plan Assessment & Plan Orders: Orders AMB Hemoglobin A1c Today E11.9 - Type 2 diabetes mellitus without complications Medications: New tirzepatide (Mounjaro) 10 mg (0.5 mL) subcut QWEEK 6 mL 3RF E11.9 - Type 2 diabetes mellitus without complications Refilled escitalopram oxalate (Lexapro) 5 mg PO DAILY 90 tabs 3RF glipizide Two tablets in the morning and 1 at night 90 days 270 tabs 3RF Discontinued tirzepatide (Mounjaro) Discontinued Reason: Doctor's Order 7.5 mg (0.5 mL) subcut QWEEK 6 mL 3RF Coding
[2024-09-10 14:56] LABS: Glucose, Whole Blood 157 mg/dL (60-115)
== END 2024-09-10 15:15 | disposition home or self-care (01) ==
LOC: HO.ENCR 14:33
PROVIDERS: PCP Internal Medicine; Visit Provider Internal Medicine
DX: E11.9 Type 2 diabetes mellitus without complications (principal)

== ENCOUNTER → 2024-09-10 14:32 | Outpatient (BNVA) | payer BC, SELFPAY | PROVIDERS: PCP Internal Medicine; Visit Provider Internal Medicine | DX: E11.9 Type 2 diabetes mellitus without complications (principal); F33.1 Major depressive disorder, recurrent, moderate | CPT/HCPCS: 82947; 83036 ==

== ENCOUNTER 2024-11-26 13:58 | Outpatient (AMB) | payer BC, SELFPAY ==
[2024-11-26 14:01] VITALS: BP 140/80; PULSE 87; RESP 16; TEMP 37; O2SAT 97; BMI 36.7
--- NOTE | 2024-11-26 14:01 | MHC.PC.OV ---
Vital Signs 11/26/24 14:01 Height 5 ft 3 in Weight 207 lb BMI 36.7 BP 140/80 H Blood Pressure Location Lt brachial Position Sitting Respiration 16 Pulse 87 Pulse Source Pulse Oximeter Temp 98.6 F Temp Source Oral Pulse Oximetry (%) 97 Oxygen Delivery Method Room Air Intake Visit Reasons: Annual PE Allergies penicillin V Allergy (Unknown, Verified 09/10/24 14:35) unknown Medication List - Last Reconciled 11/26/24 by Tim Nieves MD alcohol swabs (Alcohol Prep Pads) 1 pad topical DAILY allopurinol 100 mg PO DAILY BD Erma 2nd Gen Pen Needle (pen needle, diabetic) once daily NS blood sugar diagnostic (OneTouch Ultra Test strips) As directed blood-glucose meter (Elementa Energy SolutionsTouch Ultra2 Meter) Use to check fasting blood sugar daily escitalopram oxalate (Lexapro) 5 mg PO DAILY glipizide Two tablets in the morning and 1 at night 90 days lancets Use to check fasting blood sugar daily tirzepatide (Mounjaro) 10 mg (0.5 mL) subcut QWEEK Tobacco use date assessed: 11/26/24 Dental Screening Dental Screen Date: 11/26/24 Did you have a dental visit in the last 12 months?: Yes Did you have a dental problem in the last 6 months where you did not have access to dental care?: No Was dental information given to patient?: Patient has dentist HPI Annual PE HPI Details Physical exam - The patient is a 59-year-old female presenting with follow-up for diabetes management and blood pressure evaluation. - The patient has Type 2 Diabetes Mellitus and has been managing her condition with Glipizide and Mounjaro. Last Hemoglobin A1c was 7.0 in August of this year. Established with endocrinology [facility] - Reports concerns regarding weight management despite medication use, indicating realization of the need for lifestyle changes including diet and exercise. - Hypertension with a current reading of 140/80. Patient feels that she has a white coat hypertension because blood pressure usually runs in 120 at home - History of Anxiety Disorder, with Lexapro recommended but patient hesitant to take it. - Uterine cancer treated with a complete hysterectomy approximately nine years ago. At the age of 50 - Reports management of gout with Allopurinol, no recent flare-ups. 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 - History of prolactinoma with previous medication but currently no symptoms, monitoring includes checking of peripheral vision and prolactin level which was normal in September. And today - The patient is considering upcoming insurance changes due to 's assisted and is aiming to complete necessary medical follow-ups before the change. Medical History: - Type 2 Diabetes Mellitus - Hypertension - Anxiety Disorder - Gout - Uterine Cancer (post-hysterectomy) - History of Prolactinoma - Skin Cancer Surgical History: - Complete hysterectomy (at age 50) Social History: - Planning to change insurance due to 's assisted. - Concern about weight management; aware of dietary intake and exercise role. - Reports familial influence on diet and body shape. - Undergoing transition to assisted and considers travel plans back home to [place] in the future. Family History: - Brother Health Maintenance - Regular mammograms, last completed in the past fall. - Colonoscopy completed approximately seven to eight years ago, records to be obtained. [facility] - Regular COMMUNITY COORDINATOR visits due to history of uterine cancer. - Prolactin level checked in September with normal results. - Skin cancer follow-up recommended annually. - Annual comprehensive eye exams for monitoring past prolactinoma. [place] [facility] - Seen by stakes player for diabetes management. - COMMUNITY COORDINATOR for annual follow-up due to history of uterine cancer. - Potential future insurance plan changes to be factored in care planning. Medications - Allopurinol 100 mg for Gout - Lexapro for Anxiety Disorder - Glipizide for Diabetes Mellitus, 2 tablets in the morning, 1 in the evening - Mounjaro for Diabetes Mellitus Patient Instructions - Continue current medication regimen as prescribed. - Consider taking Lexapro for anxiety management as recommended. - Schedule and complete necessary labs prior to insurance change. - Monitor blood pressure and discuss the introduction of an JOHN inhibitor with stakes player. - Arrange and attend mammogram and possible ultrasound for left breast. [Lump was felt at 4 o'clock position left breast as per patient it is chronic but never been worked up] - Follow up with dermatology annually for skin cancer monitoring. Review of Systems - General: No fever no chills - Neurological: No headaches no dizziness - Ear nose throat: No sore throat no hearing difficulty no ear pain - Cardiovascular: No syncope, no chest pain, no palpitations - Gastrointestinal: No nausea vomiting or diarrhea - Endocrine: No polyuria polydipsia no heat intolerance - Genitourinary: No dysuria - Skin: No new complaints Physical Exam General: Cooperative, healthy appearing, comfortable, no acute distress Orientation: Patient oriented x3 Head: Normal to inspection Ears: Within normal limit visually Nose: Normal external nose present Face and sinus: Normal facial exam Eyes: Appearance normal, extraocular movement intact pupils reactive Neck: Normal visual inspection and supple Respiratory: Normal respiratory effort and able to speak in complete sentences. Clear to auscultation, no stridor Cardiovascular: S1 and S2 RRR, Breast exam: Lump felt 04:00 left breast below nipple nontender size 1 in by half an inch GI: Normal to inspection. Soft to palpation and nontender Skin: Turgor normal, no acute findings Neuro: Patient oriented x3, motor sensory intact, balance intact, tandem pass Extremities: Normal to inspection [facility] Medical History Dog bite of left lower leg Nasal congestion with rhinorrhea Annual physical exam Depression Anxiety Type 2 diabetes mellitus Breast calcification, left Surgical History S/P KHANH-BSO H/O colonoscopy Family History Father Hypertension Diabetes Mother Diabetes Hypertension COPD (chronic obstructive pulmonary disease) Maternal Grandfather Substance use disorder Social History Housing: House Patient Tobacco Use Status: Never used Tobacco e-Cigarette/Vaping Use: Never Used Second Hand Smoke Exposure: Yes service: No Current occupational status: employed Cognitive needs: No Hearing needs: No Vision needs: Yes Questionnaire PHQ-9 Over the last 2 weeks, how often have you been bothered by any of the following problems? 1. Little interest or pleasure in doing things: several days 2. Feeling down, depressed, or hopeless: several days 3. Trouble falling or staying asleep, or sleeping too much: several days 4. Feeling tired or having little energy: several days 5. Poor appetite or overeating: several days 6. Feeling bad about yourself - or that you are a failure or have let yourself or your family down: several days 7. Trouble concentrating on things, such as reading the newspaper or watching television: several days 8. Moving or speaking so slowly that other people could have noticed. Or the opposite - being so fidgety or restless that you have been moving around a lot more than usual: not at all 9. Thoughts that you would be better off or of hurting yourself in some way: not at all Total score: 7 Depression Screening Interpretation: Negative Depression Screening Done: Yes 95297 - PHQ-9 Billing: Yes Source: Developed by Drs. Daniel Mata, Namrata Mcguire, Sam Andres and colleagues, with an educational hyun from [employer]. Thrive Questionnaire Date Thrive assessed: 11/26/24 I am a: Patient What is your living situation today?: I have a steady place to live Within the past 12 months, did the food you bought not last and you didn't have the money to get more?: Never true Within the past 12 months, did you worry whether your food would run out before you got money to buy more?: Never true Do you have trouble paying for medicines?: No Do you have trouble getting transportation to medical appointments?: No Do you have trouble paying your heating and electricity bill?: No Do you have trouble taking care of your child, family member or friend?: No Do you have trouble with day-to-day activities such as bathing, preparing meals, shopping, managing finances, etc.?: No Are you currently unemployed and looking for a job?: No Are you interested in more education?: No Please select the resources that you would like help with: None Currently or been in a relationship where the following occur: No concerns reported THRIVE Score: 0 AUDIT C Alcohol Use Questionnaire (AUDIT-C) 1. How often do you have a drink containing alcohol?: Never Total Score: 0 ROMMEL-7 AMB Questionnaire ROMMEL-7 Date ROMMEL - 7 assessed: 11/26/24 Feeling nervous, anxious, or on edge: 1 = Several days Not being able to stop or control worryin = Several days Worrying too much about different things: 1 = Several days Trouble relaxin = Several days Being so restless that it is hard to sit still: 1 = Several days Becoming easily annoyed or irritable: 1 = Several days Feeling afraid as if something awful might happen: 1 = Several days Total ROMMEL-7 score (0-4 normal; 5-9 mild; 10-14 moderate; 15-21 severe): 7 Source: Developed by Drs. Daniel Mata, Namrata Mcguire, Sam Andres and colleagues, with an educational hyun from [employer]. Physical exam (Primary Care) Vital Signs: Last Vital Signs Temp 98.6 F 11/26/24 14:01 Pulse 87 11/26/24 14:01 Resp 16 11/26/24 14:01 BP 140/80 H 11/26/24 14:01 Pulse Ox 97 11/26/24 14:01 Oxygen Delivery Method Room Air 11/26/24 14:01 BMI result Body Mass Index 36.7 Tobacco/Smoking Status: Tobacco use Status Tobacco use date assessed 11/26/24 11/26/24 14:02 Patient Tobacco Use Status Never used Tobacco 11/26/24 14:02 e-Cigarette/Vaping Use Never Used 11/26/24 14:02 PHQ-9: PHQ-9 Score PHQ-9: Total score 7 11/26/24 14:02 Depression Screening Interpretation: Negative Thrive Assessment: Date of Thrive Assessment Date Thrive assessed 11/26/24 11/26/24 14:04 Currently or been in a relationship where the following occur: No concerns reported Coding Level of Care Code Est Pt Level 4 (45139) Est Pt Prev Care 40-64y(73484) Diagnoses Encounter for general adult medical examination with abnormal findings Z00.01 Breast lump on left side at 4 o'clock position N63.23 Anxiety, generalized F41.1 Type 2 diabetes mellitus without complication, without long-term current use of insulin E11.9 Diabetes mellitus complication status: without complication Diabetes mellitus middle or intermediate school principal insulin use: without middle or intermediate school principal use 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 Irritable bowel syndrome with diarrhea K58.0 Class 2 severe obesity due to excess calories with serious comorbidity and body mass index (BMI) of 38.0 to 38.9 in adult E66.01; Z68.38 Body mass index: BMI 38.0-38.9 Obesity classification: adult class 2 (BMI 35 - 39.9) Serious obesity comorbidity presence: with serious comorbidity Elevated uric acid in blood E79.0 Additional Codes PHQ-9 - 82754 - PHQ-9 Billing: Yes ([id number]) Assessment & Plan Assessment & Plan (1) Encounter for general adult medical examination with abnormal findings: Code(s): Z00.01 - Encounter for general adult medical examination with abnormal findings Category: Medical (2) Breast lump on left side at 4 o'clock position: Code(s): N63.23 - Unspecified lump in the left breast, lower outer quadrant Category: Medical (3) Anxiety, generalized: Code(s): F41.1 - Generalized anxiety disorder Category: Medical (4) DM type 2 (diabetes mellitus, type 2): Code(s): E11.9 - Type 2 diabetes mellitus without complications Category: Medical Qualifiers: Diabetes mellitus complication status: without complication Diabetes mellitus custodial insulin use: without middle or intermediate school principal use Qualified Code(s): E11.9 - Type 2 diabetes mellitus without complications (5) Lipid disorder: Code(s): E78.9 - Disorder of lipoprotein metabolism, unspecified Category: Medical (6) Irritable bowel syndrome with diarrhea: Code(s): K58.0 - Irritable bowel syndrome with diarrhea Category: Medical (7) Obesity due to excess calories: Code(s): E66.09 - Other obesity due to excess calories Category: Medical Qualifiers: Body mass index: BMI 38.0-38.9 Obesity classification: adult class 2 (BMI 35 - 39.9) Serious obesity comorbidity presence: with serious comorbidity Qualified Code(s): E66.01 - Morbid (severe) obesity due to excess calories; Z68.38 - Body mass index [BMI] 38.0-38.9, adult (8) Elevated uric acid in blood: Code(s): E79.0 - Hyperuricemia without signs of inflammatory arthritis and tophaceous disease Category: Medical Plan Physical exam - The patient is a 59-year-old female presenting with follow-up for diabetes management and blood pressure evaluation. - The patient has Type 2 Diabetes Mellitus and has been managing her condition with Glipizide and Mounjaro. Last Hemoglobin A1c was 7.0 in August of this year. Established with endocrinology [facility] - Reports concerns regarding weight management despite medication use, indicating realization of the need for lifestyle changes including diet and exercise. - Hypertension with a current reading of 140/80. Patient feels that she has a white coat hypertension because blood pressure usually runs in 120 at home - History of Anxiety Disorder, with Lexapro recommended but patient hesitant to take it. - Uterine cancer treated with a complete hysterectomy approximately nine years ago. At the age of 50 - Reports management of gout with Allopurinol, no recent flare-ups. 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 - History of prolactinoma with previous medication but currently no symptoms, monitoring includes checking of peripheral vision and prolactin level which was normal in September. And today - The patient is considering upcoming insurance changes due to 's assisted and is aiming to complete necessary medical follow-ups before the change. Medical History: - Type 2 Diabetes Mellitus - Hypertension - Anxiety Disorder - Gout - Uterine Cancer (post-hysterectomy) - History of Prolactinoma - Skin Cancer Surgical History: - Complete hysterectomy (at age 50) Social History: - Planning to change insurance due to 's assisted. - Concern about weight management; aware of dietary intake and exercise role. - Reports familial influence on diet and body shape. - Undergoing transition to assisted and considers travel plans back home to [place] in the future. Family History: - Brother Health Maintenance - Regular mammograms, last completed in the past fall. - Colonoscopy completed approximately seven to eight years ago, records to be obtained. [facility] - Regular COMMUNITY COORDINATOR visits due to history of uterine cancer. - Prolactin level checked in September with normal results. - Skin cancer follow-up recommended annually. - Annual comprehensive eye exams for monitoring past prolactinoma. [place] [facility] - Seen by stakes player for diabetes management. - COMMUNITY COORDINATOR for annual follow-up due to history of uterine cancer. - Potential future insurance plan changes to be factored in care planning. Medications - Allopurinol 100 mg for Gout - Lexapro for Anxiety Disorder - Glipizide for Diabetes Mellitus, 2 tablets in the morning, 1 in the evening - Mounjaro for Diabetes Mellitus Patient Instructions - Continue current medication regimen as prescribed. - Consider taking Lexapro for anxiety management as recommended. - Schedule and complete necessary labs prior to insurance change. - Monitor blood pressure and discuss the introduction of an JOHN inhibitor with stakes player. - Arrange and attend mammogram and possible ultrasound for left breast. [Lump was felt at 4 o'clock position left breast as per patient it is chronic but never been worked up] - Follow up with dermatology annually for skin cancer monitoring. Orders: Orders Complete Blood Count Auto Diff Today E11.9 - Type 2 diabetes mellitus without complications, E66.01 - Morbid (severe) obesity due to excess calories, E78.9 - Disorder of lipoprotein metabolism, unspecified, E79.0 - Hyperuricemia without signs of inflammatory arthritis and tophaceous disease, F41.1 - Generalized anxiety disorder, K58.0 - Irritable bowel syndrome with diarrhea, Z00.01 - Encounter for general adult medical examination with abnormal findings, Z68.38 - Body mass index [BMI] 38.0-38.9, adult Comprehensive [place]. Panel Fast Today E11.9 - Type 2 diabetes mellitus without complications, E66.01 - Morbid (severe) obesity due to excess calories, E78.9 - Disorder of lipoprotein metabolism, unspecified, E79.0 - Hyperuricemia without signs of inflammatory arthritis and tophaceous disease, F41.1 - Generalized anxiety disorder, K58.0 - Irritable bowel syndrome with diarrhea, Z00.01 - Encounter for general adult medical examination with abnormal findings, Z68.38 - Body mass index [BMI] 38.0-38.9, adult Lipid Panel Today E11.9 - Type 2 diabetes mellitus without complications, E66.01 - Morbid (severe) obesity due to excess calories, E78.9 - Disorder of lipoprotein metabolism, unspecified, E79.0 - Hyperuricemia without signs of inflammatory arthritis and tophaceous disease, F41.1 - Generalized anxiety disorder, K58.0 - Irritable bowel syndrome with diarrhea, Z00.01 - Encounter for general adult medical examination with abnormal findings, Z68.38 - Body mass index [BMI] 38.0-38.9, adult TSH reflex Free T4 Today E11.9 - Type 2 diabetes mellitus without complications, E66.01 - Morbid (severe) obesity due to excess calories, E78.9 - Disorder of lipoprotein metabolism, unspecified, E79.0 - Hyperuricemia without signs of inflammatory arthritis and tophaceous disease, F41.1 - Generalized anxiety disorder, K58.0 - Irritable bowel syndrome with diarrhea, Z00.01 - Encounter for general adult medical examination with abnormal findings, Z68.38 - Body mass index [BMI] 38.0-38.9, adult Microalbumin, Random (w Creat) Today E11.9 - Type 2 diabetes mellitus without complications, E66.01 - Morbid (severe) obesity due to excess calories, E78.9 - Disorder of lipoprotein metabolism, unspecified, E79.0 - Hyperuricemia without signs of inflammatory arthritis and tophaceous disease, F41.1 - Generalized anxiety disorder, K58.0 - Irritable bowel syndrome with diarrhea, Z00.01 - Encounter for general adult medical examination with abnormal findings, Z68.38 - Body mass index [BMI] 38.0-38.9, adult Hemoglobin A1c Today E11.9 - Type 2 diabetes mellitus without complications, E66.01 - Morbid (severe) obesity due to excess calories, E78.9 - Disorder of lipoprotein metabolism, unspecified, E79.0 - Hyperuricemia without signs of inflammatory arthritis and tophaceous disease, F41.1 - Generalized anxiety disorder, K58.0 - Irritable bowel syndrome with diarrhea, Z00.01 - Encounter for general adult medical examination with abnormal findings, Z68.38 - Body mass index [BMI] 38.0-38.9, adult MM tomosynthesis diagnostic LT Today N63.23 - Unspecified lump in the left breast, lower outer quadrant US breast LT limited Today N63.23 - Unspecified lump in the left breast, lower outer quadrant Vitamin D 25-OH (D2 and D3) Today E11.9 - Type 2 diabetes mellitus without complications, E66.01 - Morbid (severe) obesity due to excess calories, E78.9 - Disorder of lipoprotein metabolism, unspecified, E79.0 - Hyperuricemia without signs of inflammatory arthritis and tophaceous disease, F41.1 - Generalized anxiety disorder, K58.0 - Irritable bowel syndrome with diarrhea, Z00.01 - Encounter for general adult medical examination with abnormal findings, Z68.38 - Body mass index [BMI] 38.0-38.9, adult Medications: Refilled allopurinol 100 mg PO DAILY 90 tabs 0RF
== END 2024-11-26 14:29 | disposition home or self-care (01) ==
LOC: HO.HMCC 13:59
PROVIDERS: PCP Internal Medicine; Visit Provider Internal Medicine
DX: Z00.01 Encounter for general adult medical examination with abnormal findings (principal); N63.23 Unspecified lump in the left breast, lower outer quadrant; E11.9 Type 2 diabetes mellitus without complications; E66.01 Morbid (severe) obesity due to excess calories; Z68.38 Body mass index [BMI] 38.0-38.9, adult; F41.1 Generalized anxiety disorder; K58.0 Irritable bowel syndrome with diarrhea; E78.9 Disorder of lipoprotein metabolism, unspecified; E79.0 Hyperuricemia without signs of inflammatory arthritis and tophaceous disease

== ENCOUNTER → 2024-11-26 13:58 | Outpatient (BNVA) | payer BC, SELFPAY | PROVIDERS: PCP Internal Medicine; Visit Provider Internal Medicine | DX: Z00.01 Encounter for general adult medical examination with abnormal findings (principal); E11.9 Type 2 diabetes mellitus without complications; I10 Essential (primary) hypertension; N63.23 Unspecified lump in the left breast, lower outer quadrant; F41.1 Generalized anxiety disorder; K58.0 Irritable bowel syndrome with diarrhea; E66.01 Morbid (severe) obesity due to excess calories; E79.0 Hyperuricemia without signs of inflammatory arthritis and tophaceous disease; Z68.36 Body mass index [BMI] 36.0-36.9, adult | CPT/HCPCS: 96127 ==

== ENCOUNTER 2024-12-10 06:27 | Outpatient (REF) | payer BC, SELFPAY ==
[2024-12-10 10:11] LABS: MANUAL DIFF FLAG NO
[2024-12-10 10:33] LABS: Basophils Percent Auto 0.3 % (0-2); Eosinophils Absolute Auto 0.1 X10*3/uL (0.0-0.4); Eosinophils Percent Auto 0.9 % (0-4); Hematocrit 42.2 % (37.0-47.0); Hemoglobin 14.2 g/dl (12.0-16.0); Imm Gran Abs Auto 0.05 X10*3/uL (0.00-0.03); Imm Gran Pct Auto 0.6 % (0.0-0.4); Lymphocytes Absolute Auto 3.7 X10*3/uL (1.2-4.9); Lymphocytes Percent Auto 41.3 % (20-40); Mean Corpuscular HGB Conc 33.6 g/dl (31.0-35.0); Mean Corpuscular Volume 89.2 fL (80.0-98.0); Monocytes Absolute Auto 0.9 X10*3/uL (0.1-1.2); Monocytes Percent Auto 9.8 % (2-11); Neutrophils Absolute Auto 4.3 x10*3/uL (2.0-8.3); Neutrophils Percent Auto 47.1 % (45-73); Platelet Count 292 X10*3/uL (160-400); Red Blood Count 4.73 X10*6/uL (4.20-5.50); Red Cell Distribution Width 12.3 % (11.0-16.0)
[2024-12-10 10:40] LABS: Estimated Average Glucose 140 mg/dL; Hemoglobin A1c % 6.5 % (<6.0); Total Hemoglobin (HGBA1C) 3703.6695 umol/L
[2024-12-10 10:57] LABS: Alanine Aminotransferase 64 U/L (0-31); Albumin Level 4.5 g/dL (3.5-5.0); Alkaline Phosphatase 75 U/L (39-117); Anion Gap 14 (12-20); Aspartate Amino Transferase 46 U/L (5-31); Bilirubin Total 0.5 mg/dL (0.0-1.0); Blood Urea Nitrogen 25 mg/dL (9-16); Calcium 9.9 mg/dL (8.4-10.2); Carbon Dioxide 24 mmol/L (22-29); Chloride 104 mmol/L (96-108); Cholesterol 200 mg/dL (<200); Estimated Glomerular Filt Rate > 60; Glucose Fasting 113 mg/dL (60-99); HDL Cholesterol 39 mg/dL (>40); LDL Cholesterol Calculated 133 mg/dL (<100); Potassium 4.2 mmol/L (3.3-5.1); Sodium 138 mmol/L (135-145); Total Protein 7.1 g/dL (6.5-8.0); Triglycerides 144 mg/dL (<150)
[2024-12-10 11:01] LABS: TSH reflex Free T4 1.72 uIU/mL (0.32-4.0)
[2024-12-10 11:37] LABS: Creatinine Urine 30.65 mg/dL; Microalbumin Urine < 5.0 mg/L
[2024-12-15 14:59] LABS: Vitamin D 25-OH, D2 <4 ng/mL; Vitamin D 25-OH, D3 23 ng/mL; Vitamin D 25-OH, Total 23 ng/mL (30-100)
== END 2024-12-10 06:28 | disposition home or self-care (01) ==
LOC: HO.HMGCLDS 06:27
PROVIDERS: PCP Internal Medicine; Visit Provider Internal Medicine
DX: Z00.01 Encounter for general adult medical examination with abnormal findings (principal); E11.9 Type 2 diabetes mellitus without complications; F41.1 Generalized anxiety disorder; E78.9 Disorder of lipoprotein metabolism, unspecified; K58.0 Irritable bowel syndrome with diarrhea; E66.01 Morbid (severe) obesity due to excess calories; Z68.38 Body mass index [BMI] 38.0-38.9, adult; E79.0 Hyperuricemia without signs of inflammatory arthritis and tophaceous disease; Z79.84 Long term (current) use of oral hypoglycemic drugs; Z79.4 Long term (current) use of insulin
CPT/HCPCS: 36415; 80053; 80061; 82043; 82306; 82570; 82947; 83036; 84443; 85025

== ENCOUNTER 2024-12-10 15:00 | Outpatient (AMB) | payer BC, SELFPAY ==
--- NOTE | 2024-12-10 15:02 | A.OFFVIS_ITS ---
Vital Signs 12/10/24 15:06 Height 5 ft 3 in Weight 209 lb 7.026 oz BMI 37.1 BP 122/68 Blood Pressure Location Rt brachial Position Sitting Pulse 88 Pulse Source Pulse Oximeter Pulse Oximetry (%) 98 Oxygen Delivery Method Room Air Intake Visit Reasons: DM Intake Note: Patient presents today for a follow-up on Type 2 Diabetes Mellitus: Last Diabetic eye exam was on: DUE Last Podiatry exam was on: Does not see a Cap Parts Cutter Most recent HbA1c: 6.5%, 12/10/2024 Random Glucose- 138 mg/dL, Today Fringe Knotter Required: No Accompanied by: Self / Same As Patient Allergies penicillin V Allergy (Unknown, Verified 12/10/24 15:02) unknown HPI Comments Details: 58 year old female with type 2 diabetes presenting for follow up Diagnosed one year ago with diabetes Current medications: glipizide 10/5, mounjaro 10mg weekly. A1C 6.5% from 7.0% from 7.9% and 8.2% prior. Did not ever take metformin due to irritable bowel. Glucometer shows testing once daily fasting. She is very frustrated with inab ility to lose more weight. Increased depressive/anxiety symptoms. Lots of grief from her close family losses last year. Has lexapro but has not restarted to date. She just bought a [employer] in [employer] so that has given her some positivity Lost her brother one year ago from heart problems. Lost her mother, who had severe dementia soon after. Even more recently lost her 17 year old dog. Says she is committed to taking care of herself now that her son is back at school. She plans to start walking this week. She has started to decrease carbs in the diet. She has seen nutrition in the past. She tells me she has a good grasp of diabetes. 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 Aware of symptoms and treatment ROS CONSTITUTIONAL: Denies weight loss, fever and chills. HEENT: Denies changes in vision and hearing. RESPIRATORY: Denies SOB and cough. CV: Denies palpitations and CP GI: Denies abdominal pain, nausea, vomiting and diarrhea. : Denies dysuria and urinary frequency. MSK: Denies new myalgia and joint pain. SKIN: Denies rash and pruritus. NEUROLOGICAL: Denies headache PSYCHIATRIC: Denies recent changes in mood. PHYSICAL EXAM: GENERAL: Alert and oriented x 3. NAD EYES: EOMI. Anicteric. HENT: Moist mucous membranes. No scleral icterus. No cervical lymphadenopathy. LUNGS: Clear to auscultation bilaterally. CARDIOVASCULAR: Regular rate and rhythm. No murmur. No JVD. ABDOMEN: Soft, non-tender +bs EXTREMITIES: No edema. Non-tender. +DP pulses SKIN: No rashes or lesions. Warm. NEUROLOGIC: LE sensation intact. CN II-XII grossly intact PSYCHIATRIC: Cooperative. Appropriate mood and affect [facility] Medical History Dog bite of left lower leg Nasal congestion with rhinorrhea Annual physical exam Depression Anxiety Type 2 diabetes mellitus Breast calcification, left Surgical History S/P KHANH-BSO H/O colonoscopy Family History Father Hypertension Diabetes Mother Diabetes Hypertension COPD (chronic obstructive pulmonary disease) Maternal Grandfather Substance use disorder Social History Housing: House Patient Tobacco Use Status: Never used Tobacco e-Cigarette/Vaping Use: Never Used Second Hand Smoke Exposure: Yes service: No Current occupational status: employed Cognitive needs: No Hearing needs: No Vision needs: Yes Physical Exam Vital Signs: Last Vital Signs Pulse 88 12/10/24 15:06 BP 122/68 12/10/24 15:06 Pulse Ox 98 12/10/24 15:06 Oxygen Delivery Method Room Air 12/10/24 15:06 BMI result Body Mass Index 37.1 Results Reviewed Results Reviewed: Laboratory Last Values Glucose (Clinic) 138 mg/dL (60-115) H 12/10/24 15:11 Assessment & Plan Assessment & Plan (1) DM type 2 (diabetes mellitus, type 2): Code(s): E11.9 - Type 2 diabetes mellitus without complications Category: Medical Qualifiers: Diabetes mellitus complication status: without complication Diabetes mellitus skilled nursing insulin use: without rodent exterminator use Qualified Code(s): E11.9 - Type 2 diabetes mellitus without complications (2) Anxiety: Code(s): F41.9 - Anxiety disorder, unspecified Category: Medical Plan 59 year old for diabetes follow up DIabetes is controlled. Mounjaro will be increased to aid weight loss efforts. I f maximized could consider trial phentermine Orders: Orders AMB Hemoglobin A1c 12/10/24 E11.9 - Type 2 diabetes mellitus without complications Medications: New Mounjaro (tirzepatide) 15 mg (0.5 mL) subcut QWEEK 6 mL 3RF NS E11.9 - Type 2 diabetes mellitus without complications Changed From glipizide Two tablets in the morning and 1 at night 90 days 270 tabs 3RF To glipizide 5 mg PO DAILY 90 tabs 3RF 90 days Discontinued tirzepatide (Mounjaro) Discontinued Reason: Doctor's Order 10 mg (0.5 mL) subcut QWEEK 6 mL 3RF E11.9 - Type 2 diabetes mellitus without complications Coding Level of Care Code Est Pt Level 4 (49109) Diagnoses Type 2 diabetes mellitus without complication, without long-term current use of insulin E11.9 Diabetes mellitus complication status: without complication Diabetes mellitus skilled nursing insulin use: without skilled nursing use Anxiety F41.9
[2024-12-10 15:06] VITALS: BP 122/68; PULSE 88; O2SAT 98; BMI 37.1
[2024-12-10 15:15] LABS: Glucose, Whole Blood 138 mg/dL (60-115)
== END 2024-12-10 15:28 | disposition home or self-care (01) ==
LOC: HO.ENCR 15:01
PROVIDERS: PCP Internal Medicine; Visit Provider Internal Medicine
DX: E11.9 Type 2 diabetes mellitus without complications (principal); F41.9 Anxiety disorder, unspecified

== ENCOUNTER 2025-03-09 10:58 | Outpatient (REF) | payer SELFPAY ==
--- NOTE | ~2025-03-09 | MM_ITS ---
EXAMINATION(S): 1. MM DIAGNOSTIC DIGITAL BREAST TOMOSYNTHESIS, BILATERAL 2. Targeted ultrasound of the left breast CLINICAL INFORMATION: Left breast lump at 4 o'clock position for 10 years. COMPARISON: Comparison made to multiple prior, most recent April 12, 2024, and most remote May 31, 2021. TECHNIQUE: Digital breast tomosynthesis is performed in both the mediolateral oblique and craniocaudal views along with computer-aided detection (CAD). Synthesized 2D images are generated from the tomosynthesis. Spot compression tomosynthesis were obtained. Skin BB marker was placed in the left breast, indicating the location of the palpable concern. FINDINGS: BREAST COMPOSITION: There are scattered areas of fibroglandular density (ACR BI-RADS breast composition Category b). RIGHT BREAST: No significant masses, suspicious calcifications or other abnormalities are seen. LEFT BREAST: Focal asymmetry in the lower inner quadrant middle/posterior depth presses out with spot compression and most likely represented overlapping fibroglandular breast tissue. No significant masses, suspicious calcifications or other abnormalities are seen. In particular, no suspicious mammographic findings adjacent to the skin BB marker. Targeted ultrasound of the left breast was performed at the location of the palpable concern. The survey shows a 2.8 x 1.0 x 1.8 cm ill-defined isoechoic solid mass at 4 o'clock position 15 cm from the nipple. Mild internal vascularity demonstrated with color Doppler evaluation. MM/MM tomosynthesis diagnostic BI IMPRESSION: RIGHT BREAST: Negative, no mammographic evidence of malignancy. Normal interval follow-up is recommended in 12 months. LEFT BREAST: Palpable concern correlates with a 2.8 cm hypoechoic solid mass at 4 o'clock position 15 cm from the nipple, with benign sonographic features. Probably benign. A 6-month follow-up ultrasound is recommended. ASSESSMENT: BI-RADS 3 - Probably benign finding(s) - 6 month follow-up suggested RECOMMENDATION: 6 Month F/U Results were provided to the patient at time of visit by the technologist. This patient's information was entered into a reminder system with a target due date for their next mammogram. Electronically signed by: Renee Rodriguez MD 03/09/2025 01:49 PM EDT
== END 2025-03-09 10:59 | disposition home or self-care (01) ==
LOC: HO.MAMMO 10:58
PROVIDERS: PCP Internal Medicine; Visit Provider Internal Medicine
DX: N63.23 Unspecified lump in the left breast, lower outer quadrant (principal)
CPT/HCPCS: 76642; 77062; 77066

== ENCOUNTER → 2025-03-09 11:30 | Outpatient (BNV) | payer SELFPAY | PROVIDERS: PCP Internal Medicine; Visit Provider Radiology Body Imaging | DX: N63.23 Unspecified lump in the left breast, lower outer quadrant (principal) | CPT/HCPCS: 76642; 77062; 77066 ==

== ENCOUNTER 2025-03-18 15:24 | Outpatient (AMB) | payer OTHER, SELFPAY ==
[2025-03-18 15:27] VITALS: BP 152/78; PULSE 96; O2SAT 98; BMI 37.3
--- NOTE | 2025-03-18 15:27 | A.OFFVIS_ITS ---
Vital Signs 03/18/25 15:27 Height 5 ft 3 in Weight 210 lb 10.3 oz BMI 37.3 BP 152/78 H Blood Pressure Location Rt brachial Position Sitting Pulse 96 Pulse Source Pulse Oximeter Pulse Oximetry (%) 98 Oxygen Delivery Method Room Air Intake Visit Reasons: DM Intake Note: Patient presents today for a follow-up on Type 2 Diabetes Mellitus: Last Diabetic eye exam was on: DUE, patient will be calling to make an appt Last Podiatry exam was on: Does not see a Associate Marketing Manager Most recent HbA1c: 9.8%, 03/18/2025 Random Glucose- 311 mg/dL, Today Party Supply Specialist Required: No Accompanied by: Self / Same As Patient Allergies penicillin V Allergy (Unknown, Verified 03/18/25 15:34) unknown HPI Comments Details: 58 year old female with type 2 diabetes presenting for follow up Diagnosed one year ago with diabetes Current medications: glipizide 03/22, [facility] months due to insurance issues and travel. 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 A1C 9.8% from 6.5% from 7.0% from 7.9% and 8.2% prior. Did not ever take metformin due to irritable bowel. Glucometer shows testing once daily fasting. She is very frustrated with inability to lose more weight. She is eating cleanly, low carb but not exercising. Stable depressive/anxiety symptoms. Lots of grief from her close family losses last year. Has lexapro but has not restarted to date. Lost her brother one year ago from heart problems. Lost her mother, who had severe dementia soon after. Even more recently lost her 17 year old dog. Says she is committed to taking care of herself now that her son is back at school. She plans to start walking this week. She has started to decrease carbs in the diet. She has seen nutrition in the past. She tells me she has a good grasp of diabetes. 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 Aware of symptoms and treatment ROS CONSTITUTIONAL: Denies weight loss, fever and chills. HEENT: Denies changes in vision and hearing. RESPIRATORY: Denies SOB and cough. CV: Denies palpitations and CP GI: Denies abdominal pain, nausea, vomiting and diarrhea. : Denies dysuria and urinary frequency. MSK: Denies new myalgia and joint pain. SKIN: Denies rash and pruritus. NEUROLOGICAL: Denies headache PSYCHIATRIC: Denies recent changes in mood. PHYSICAL EXAM: GENERAL: Alert and oriented x 3. NAD EYES: EOMI. Anicteric. HENT: Moist mucous membranes. No scleral icterus. No cervical lymphadenopathy. LUNGS: Clear to auscultation bilaterally. CARDIOVASCULAR: Regular rate and rhythm. No murmur. No JVD. ABDOMEN: Soft, non-tender +bs EXTREMITIES: No edema. Non-tender. +DP pulses SKIN: No rashes or lesions. Warm. NEUROLOGIC: LE sensation intact. CN II-XII grossly intact PSYCHIATRIC: Cooperative. Appropriate mood and affect [facility] Medical History Dog bite of left lower leg Nasal congestion with rhinorrhea Annual physical exam Depression Anxiety Type 2 diabetes mellitus Breast calcification, left Surgical History S/P KHANH-BSO H/O colonoscopy Family History Father Hypertension Diabetes Mother Diabetes Hypertension COPD (chronic obstructive pulmonary disease) Maternal Grandfather Substance use disorder Social History Housing: House Patient Tobacco Use Status: Never used Tobacco e-Cigarette/Vaping Use: Never Used Second Hand Smoke Exposure: Yes service: No Current occupational status: employed Cognitive needs: No Hearing needs: No Vision needs: Yes Physical Exam Vital Signs: Last Vital Signs Pulse 96 03/18/25 15:27 BP 152/78 H 03/18/25 15:27 Pulse Ox 98 03/18/25 15:27 Oxygen Delivery Method Room Air 03/18/25 15:27 BMI result Body Mass Index 37.3 Results AMB Hemoglobin A1c AMB Hemoglobin A1c 9.8 % Last Edit by CANDACE Fernandez on 03/18/25 15:45 Assessment & Plan Assessment & Plan (1) DM type 2 (diabetes mellitus, type 2): Code(s): E11.9 - Type 2 diabetes mellitus without complications Category: Medical Qualifiers: Diabetes mellitus ornamental rail installer insulin use: without fdc use Diabetes mellitus complication status: without complication Qualified Code(s): E11.9 - Type 2 diabetes mellitus without complications Plan DM uncontrolled in setting of medication issues. She will restart mounjaro at 5mg weekly. Plan to uptitrate quickly as tolerated. She will return in 4 weeks. Continue glipizide 15mg daily Treat hypoglycemia by rules of 15s. Overdue eye exam referral placed Orders: Orders AMB Hemoglobin A1c Today E11.9 - Type 2 diabetes mellitus without complications Referrals Ophthalmology Referral E11.9 - Type 2 diabetes mellitus without complications Medications: New Mounjaro (tirzepatide) patient retitrating up 5 mg (0.5 mL) subcut QWEEK 2 mL 0RF NS glipizide ER 15 mg (3 x 5 mg) PO DAILY 270 tabs 3RF Discontinued escitalopram oxalate (Lexapro) Discontinued Reason: Doctor's Order 5 mg PO DAILY 90 tabs 3RF tirzepatide (Mounjaro) Discontinued Reason: Doctor's Order 10 mg (0.5 mL) subcut QWEEK 6 mL 3RF glipizide Discontinued Reason: Doctor's Order 5 mg PO DAILY 90 days 90 tabs 3RF Coding Level of Care Code Est Pt Level 4 (90422) Diagnoses Type 2 diabetes mellitus without complication, without long-term current use of insulin E11.9 Diabetes mellitus ornamental rail installer insulin use: without ornamental rail installer use Diabetes mellitus complication status: without complication
[2025-03-18 15:38] LABS: Glucose, Whole Blood 311 mg/dL (60-115)
== END 2025-03-18 15:58 | disposition home or self-care (01) ==
PROVIDERS: PCP Internal Medicine; Visit Provider Internal Medicine
DX: E11.9 Type 2 diabetes mellitus without complications (principal)

== ENCOUNTER → 2025-03-18 15:24 | Outpatient (BNVA) | payer OTHER, SELFPAY | PROVIDERS: PCP Internal Medicine; Visit Provider Internal Medicine | DX: E11.9 Type 2 diabetes mellitus without complications (principal); Z79.84 Long term (current) use of oral hypoglycemic drugs | CPT/HCPCS: 82947; 83036 ==

== ENCOUNTER 2025-05-28 15:28 | Outpatient (AMB) | payer OTHER, SELFPAY ==
--- NOTE | 2025-05-28 15:29 | A.OFFVIS_ITS ---
Vital Signs 05/28/25 15:30 Height 5 ft 3 in Weight 207 lb 3.752 oz BMI 36.7 BP 120/70 Blood Pressure Location Rt brachial Position Sitting Pulse 96 Pulse Source Pulse Oximeter Pulse Oximetry (%) 99 Oxygen Delivery Method Room Air Intake Visit Reasons: DM Intake Note: Patient presents today for a follow-up on Type 2 Diabetes Mellitus: Last Diabetic eye exam was on: 04/2025, [facility] Last Podiatry exam was on: Does not see a Oil Pipeline Dispatcher Most recent HbA1c: 8.3%, 05/28/2025 Random Glucose- 153 mg/dL, Today Family Centered Specialist Required: No Allergies penicillin V Allergy (Unknown, Verified 03/18/25 15:34) unknown HPI Comments Details: 58 year old female with type 2 diabetes presenting for follow up Diagnosed one year ago with diabetes Current medications: Glipizide 03/22 Mounjaro 7.5 second dose tonight. 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 A1C 8.3% from 9.8% from 6.5% from 7.0% from 7.9% and 8.2% prior. Did not ever take metformin due to irritable bowel. Glucometer shows testing once daily fasting. She is very frustrated with inability to lose more weight. She is eating cleanly, low carb but not exercising. Stable depressive/anxiety symptoms. Lots of grief from her close family losses last year. Has lexapro but has not restarted to date. Lost her brother one year ago from heart problems. Lost her mother, who had severe dementia soon after. Even more recently lost her 17 year old dog. Says she is committed to taking care of herself now that her son is back at school. She plans to start walking this week. She has started to decrease carbs in the diet. She has seen nutrition in the past. She tells me she has a good grasp of diabetes. 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 Aware of symptoms and treatment ROS CONSTITUTIONAL: Denies weight loss, fever and chills. HEENT: Denies changes in vision and hearing. RESPIRATORY: Denies SOB and cough. CV: Denies palpitations and CP GI: Denies abdominal pain, nausea, vomiting and diarrhea. : Denies dysuria and urinary frequency. MSK: Denies new myalgia and joint pain. SKIN: Denies rash and pruritus. NEUROLOGICAL: Denies headache PSYCHIATRIC: Denies recent changes in mood. PHYSICAL EXAM: GENERAL: Alert and oriented x 3. NAD EYES: EOMI. Anicteric. HENT: Moist mucous membranes. No scleral icterus. No cervical lymphadenopathy. LUNGS: Clear to auscultation bilaterally. CARDIOVASCULAR: Regular rate and rhythm. No murmur. No JVD. ABDOMEN: Soft, non-tender +bs EXTREMITIES: No edema. Non-tender. +DP pulses SKIN: No rashes or lesions. Warm. NEUROLOGIC: LE sensation intact. CN II-XII grossly intact PSYCHIATRIC: Cooperative. Appropriate mood and affect [facility] Medical History Dog bite of left lower leg Nasal congestion with rhinorrhea Annual physical exam Depression Anxiety Type 2 diabetes mellitus Breast calcification, left Surgical History S/P KHANH-BSO H/O colonoscopy Family History Father Hypertension Diabetes Mother Diabetes Hypertension COPD (chronic obstructive pulmonary disease) Maternal Grandfather Substance use disorder Social History Housing: House Patient Tobacco Use Status: Never used Tobacco e-Cigarette/Vaping Use: Never Used Second Hand Smoke Exposure: Yes service: No Current occupational status: employed Cognitive needs: No Hearing needs: No Vision needs: Yes Physical Exam Vital Signs: Last Vital Signs Pulse 96 05/28/25 15:30 BP 120/70 05/28/25 15:30 Pulse Ox 99 05/28/25 15:30 Oxygen Delivery Method Room Air 05/28/25 15:30 BMI result Body Mass Index 36.7 Results AMB Hemoglobin A1c AMB Hemoglobin A1c 8.3 % Last Edit by CANDACE Fernandez on 05/28/25 15:52 Results Reviewed Results Reviewed: Laboratory Last Values Glucose (Clinic) 153 mg/dL (60-115) H 05/28/25 15:34 Assessment & Plan Assessment & Plan Orders: Orders AMB Hemoglobin A1c Today E11.9 - Type 2 diabetes mellitus without complications XR thoracic spine 2V Today M54.6 - Pain in thoracic spine Patient Instructions: Consider phentermine After your fourth shot of 7.5mg mounjaro call the office so I can send in 10mg mounjaro Coding
[2025-05-28 15:30] VITALS: BP 120/70; PULSE 96; O2SAT 99; BMI 36.7
[2025-05-28 15:39] LABS: Glucose, Whole Blood 153 mg/dL (60-115)
== END 2025-05-28 16:01 | disposition home or self-care (01) ==
LOC: HO.ENCR 15:28
PROVIDERS: PCP Internal Medicine; Visit Provider Internal Medicine
DX: E11.9 Type 2 diabetes mellitus without complications (principal)

== ENCOUNTER → 2025-05-28 15:28 | Outpatient (BNVA) | payer OTHER, SELFPAY | PROVIDERS: PCP Internal Medicine; Visit Provider Internal Medicine | DX: E11.9 Type 2 diabetes mellitus without complications (principal); Z79.84 Long term (current) use of oral hypoglycemic drugs; Z79.85 Long-term (current) use of injectable non-insulin antidiabetic drugs | CPT/HCPCS: 82947; 83036 ==

== ENCOUNTER 2025-06-15 08:00 | Outpatient (AMB) | payer OTHER, SELFPAY ==
--- OUTSIDE RECORDS SUMMARY | 2025-06-11 23:59 | XMS_ITS | Continuity of Care Document ---
Author Organization [facility] Address [address] [place] [id number]- Care Team Providers Care Minister Of Religion Name Role Phone Hannah Topete MD Primary Care Physician [place] [facility] [place] [facility] [place]): [place] - 06/11/25 [facility] [address] [place] [phone]- Attending Physician: Vanessa Dela Cruz Admitting Physician: Vanessa Dela Cruz Referring Physician: Vanessa Dela Cruz Encounter Type: Triage Allergies, Adverse Reactions, Alerts Substance Criticality Severity Reaction Reaction Severity Status penicillins Unable to assess criticality Persistent Severe rash Active Medications glipiZIDE 5 mg oral tablet 5 mg, 1, tablet, By Mouth, Daily, Refills 0, Maintenance, 05/01/23 10:54:00 AM EST, Partial fill upon patient request if the prescription is for a schedule II opioid drug. Start Date: 05/01/23 Status: Ordered Medication Dispense Status: Completed Total Allowed Fills: 1 Fills Dispensed: 0 Mounjaro 2.5 mg/0.5 mL subcutaneous solution = 2.5 mg, Subcutaneous Injection, Every week, rotate injection sites, # 4 each, 0 Refills, Maintenance, 05/12/24 4:00:00 PM EST, Solution, Partial fill upon patient request if the prescription is fora schedule II opioid drug. Start Date: 05/12/24 Status: Ordered Medication Dispense Status: Completed Quantity: 4.0 Unit: each Total Allowed Fills: 1 Fills Dispensed: 0 Problem List Condition Confirmation Course Effective Dates Status Health St atus Informant History of endometrial cancer Confirmed Active Endometrial cancer Confirmed Active Obese class II Confirmed Active Social History Social History Type Response Smoking Status Never smoker entered on: 07/28/16 Sex Sex Representation Female (finding) Patient Care team information Care Team Personnel Name: Hannah Topete MD Position: [facility] Physician - Primary Care Member Role: PCP Address: [address] [place], [place] [address] Telecom: Care Team Related Persons Name: ERIC PLUMMER Name: OLAYINKA DC Name: ELIZABETH DC Name: NO, ONE Insurance Providers Guarantor name: DOE DC Health Plan Information #: 1 Payer: [employer] [facility] Payer Identifier: LULA Member Number: [id number] Group Number: [id number] Subscriber Identifier: LULA Relationship to Subscriber: self Coverage Type: NA Coverage Verification Date: NA Telecom: NA Address:
--- OUTSIDE RECORDS SUMMARY | 2025-06-11 23:59 | XMS_ITS | Continuity of Care Document ---
Author Organization [facility] Address [address] [place] [address]- Care Team Providers Care Street Supervisor Name Role Phone Hannah Topete MD Primary Care Physician [phone] Encounter [facility] [id number] Date(s): 02/11/25 - 06/11/25 [facility] [address] [place] [phone]- Attending Physician: Letitia Mcdowell NP Admitting Physician: Letitia Mcdowell NP Encounter Type: Pre-OutPatient One Time Allergies, Adverse [...] Team Personnel Name: Hannah Topete MD Position: [facility] Physician - Primary Care Member Role: PCP Address: [address] [place], [place] [address] Telecom: Care Team Related Persons Name: ERIC PLUMMER Name: OLAYINKA DC Name: ELIZABETH DC Name: NO, ONE Insurance Providers Guarantor name: DOE DC Health Plan Information #: 1 Payer: [employer] [facility] Payer Identifier: LULA Member Number: [id number] Group Number: [id number] Subscriber Identifier: [id number] Relationship to Subscriber: self Coverage Type: NA Coverage Verification Date: NA Telecom: NA Address:
[2025-06-15 08:06] VITALS: BP 120/70; PULSE 96; O2SAT 96; BMI 36.1
--- NOTE | 2025-06-15 08:06 | AM.OFFWIN_ITS ---
Intake Vital Signs 06/15/25 08:06 Height 5 ft 3 in Weight 204 lb BMI 36.1 BP 120/70 Blood Pressure Location Rt brachial Position Sitting Pulse 96 Pulse Source Pulse Oximeter Pulse Oximetry (%) 96 Oxygen Delivery Method Room Air Intake Visit Reasons: EP right foot gout pain Intake Note: Patient presents c/o right foot gout pain x4 days. Patient Tobacco Use Status: Never used Tobacco Allergies Penicillins Allergy (Verified 06/15/25 08:09) Unknown Medication List - Last Reconciled 06/15/25 by Ruthann Garcia NP alcohol swabs (Alcohol Prep Pads) 1 pad topical DAILY allopurinol 100 mg PO DAILY BD Erma 2nd Gen Pen Needle (pen needle, diabetic) once daily NS blood sugar diagnostic (Lagiaruch Ultra Test strips) As directed blood-glucose meter (Automated InsightsTouch Ultra2 Meter) Use to check fasting blood sugar daily glipizide ER 15 mg (3 x 5 mg) PO DAILY lancets Use to check fasting blood sugar daily Mounjaro (tirzepatide) 7.5 mg (0.5 mL) subcut QWEEK NS Do you need a note to return to daycare/school/sports/work: Yes HPI HPI Comments History of Present Illness Details 59-year-old female presents to the walk- in clinic with complaint of right foot pain for the past 4 days. Pain is described as acute in onset and progressively worsening. She reports a known history of gout, with her last flare approximately one year ago. She currently takes Allopurinol 100 mg daily. Denies any recent injury or trauma to the foot. Patient reports eating shrimp over the past several days, which she identifies as a known trigger for her gout flares. Denies fevers, chills, numbness, tingling, open wounds, or drainage. [facility] Medical History (Updated 06/15/25 @ 08:27 by Ruthann Garcia NP) Right foot pain Dog bite of left lower leg Nasal congestion with rhinorrhea Annual physical exam Depression Anxiety Type 2 diabetes mellitus Breast calcification, left Surgical History S/P KHANH-BSO H/O colonoscopy Family History Father Hypertension Diabetes Mother Diabetes Hypertension COPD (chronic obstructive pulmonary disease) Maternal Grandfather Substance use disorder Social History Housing: House Patient Tobacco Use Status: Never used Tobacco e-Cigarette/Vaping Use: Never Used Second Hand Smoke Exposure: Yes service: No Current occupational status: employed Cognitive needs: No Hearing needs: No Vision needs: Yes Review of Systems Const All systems reviewed & are unremarkable except as noted in HPI and below Physical Exam Vital Signs: Last Vital Signs Pulse 96 06/15/25 08:06 BP 120/70 06/15/25 08:06 Pulse Ox 96 06/15/25 08:06 Oxygen Delivery Method Room Air 06/15/25 08:06 BMI result Body Mass Index 36.1 Const General: no acute distress; No comfortable Nutritional Appearance: obese Orientation/consciousness: patient oriented x3 Neuro General: patient oriented x3, gait normal (Walks with slight limp due to Pain.) and moves all extremities Extrem Other: Tenderness to palpation around the Malleolus region. Mild swelling and warmth noted No open wounds, erythema streaking, or deformity Pain with weight-bearing and ROM. Psych Speech and movement: Normal speech and movement present Assessment & Plan Assessment & Plan (1) Right foot pain: Code(s): M79.671 - Pain in right foot Plan: Ordered Indomethacine 50 mg TID for 5 days. Rest and elevate affected foot Apply ice as needed for pain and inflammation Avoid known dietary triggers (shellfish, red meat, alcohol) Follow up with PCP or return to clinic if symptoms worsen or do not improve within 2?3 days Seek urgent care for fever, increasing redness, severe pain, or inability to bear weight Medications: New indomethacin administer with food or milk 50 mg PO TID 15 caps 0RF 5 days M79.671 - Pain in right foot Coding Level of Care Code Est Pt Level 4 (65236) Diagnoses Right foot pain M79.671 Time Spent (min) 20
== END 2025-06-15 08:32 | disposition home or self-care (01) ==
PROVIDERS: PCP Internal Medicine; Visit Provider Nurse Practitioner Family
DX: M79.671 Pain in right foot (principal)